=== PATIENT | female | born 1965 | race Hispanic/Latino ===

== ENCOUNTER 2017-02-25 02:26 | Inpatient (IN) | payer MEDICAID, OTHER ==
[2017-02-25] MEDS ORDERED: Sodium Chloride 0.9% 1,000 ML IV SCH ×2 (02:45→04:55)
--- NOTE | 2017-02-25 02:53 | ED PDOC ---
Arrival/HPI - General Time Seen by Provider: 02/25/17 02:28 Historian: Patient, Family - History of Present Illness Narrative History of Present Illness (Text): 02/25/17 02:49 Candi Hitchcock is a 51 year old female who presents to the emergency department for withdrawal symptoms. Patient is a poor historian. Limited history attained from family, who informs that patient's last drink was yesterday. Denies any psychological complaints. Denies chest pain, shortness of breath, abdominal pain , urinary symptoms, or any other complaints at this time. Symptom Onset: Gradual Symptom Course: Worsening Severity Level: Mild Activities at Onset: Light Past Medical History - Provider Review Nursing Documentation Reviewed: Yes - Past History Past History: No Previous - Infectious Disease Hx of Infectious Diseases: None - Tetanus Immunization Tetanus Immunization: Unknown - Musculoskeletal/Rheumatological Hx Falls: No - Psychiatric Hx Depression: No Hx Emotional Abuse: No Hx Physical Abuse: No Hx Substance Use: No - Suicidal Assessment Feels Threatened In Home Enviroment: No Family/Social History - Physician Review Nursing Documentation Reviewed: Yes Family/Social History: No Known Family HX Hx Substance Use: No Hx Substance Use Treatment: No Allergies/Home Meds Allergies/Adverse Reactions: Allergies No Known Allergies Allergy (Verified 09/25/12 21:35) Home Medications: Home Meds Medication Instructions Recorded Confirmed Unobtainable 02/25/17 02/25/17 Review of Systems - Review of Systems Systems not reviewed;Unavailable: Altered Mental Status Respiratory: Normal. absent: SOB, Cough Cardiovascular: Normal. absent: Chest Pain, Palpitations Gastrointestinal: absent: Abdominal Pain Physical Exam Vital Signs Reviewed: Yes Vital Signs Temp Pulse Resp BP Pulse Ox 02/25/17 08:30 110 H 20 133/98 H 99 02/25/17 07:20 102.7 F H 02/25/17 07:12 102.7 F H 114 H 20 97 02/25/17 04:20 118 H 20 152/97 H 99 02/25/17 03:30 97 H 28 H 177/94 H 98 02/25/17 02:39 100.2 F H 92 H 18 164/101 H 96 Temperature: Febrile Blood Pressure: Hypertensive Pulse: Regular Respiratory Rate: Normal Appearance: Positive for: Non-Toxic Pain Distress: None Mental Status: Positive for: other (alert ) Finger Stick Blood Glucose: 164 - Systems Exam Head: Present: Atraumatic, Normocephalic Pupils: Present: PERRL Conjunctiva: Present: Normal Mouth: Present: Moist Mucous Membranes Respiratory/Chest: Present: Clear to Auscultation, Good Air Exchange. No: Respiratory Distress, Accessory Muscle Use Cardiovascular: Present: Regular Rate and Rhythm, Normal S1, S2. No: Murmurs Abdomen: Present: Normal Bowel Sounds. No: Tenderness, Distention, Peritoneal Signs Upper Extremity: Present: Normal Inspection. No: Cyanosis, Edema Lower Extremity: Present: Normal Inspection. No: Edema Neurological: Present: GCS=15, CN II-XII Intact, Speech Normal, Motor Func Grossly Intact, Normal Sensory Function Skin: Present: Warm, Dry, Normal Color. No: Rashes Psychiatric: Present: Alert Medical Decision Making ED Course and Treatment: 02/25/17 02:55 Impression: A 51 year old female who presents to the emergency department for evaluation of alcohol withdrawal symptoms. Plan: -- CT head -- EKG -- Drug screen -- Labs, cardiac enzymes -- Ativan -- IV fluids -- Blood culture -- Urine culture -- Urinalysis -- Reassess and disposition Progress Notes: 02/25/17 04:11 EKG reviewed by me: Sinus Tachycardia @ [address] abnormality. 02/25/17 04:20 Code sepsis called. pt seen by sumanth from [facility] will accept case 02/25/17 20:27 - Critical Care Critical Care Minutes: 45 minutes (for altered mental status) - Lab Interpretations Lab Results: 02/25/17 02:35 02/25/17 02:35 Lab Results 02/25/17 05:14: pCO2 23 L, pO2 80.0, HCO3 22.6, ABG pH 7.60 H, ABG Total CO2 23.3, ABG O2 Saturation 98.2 H, ABG O2 Content 16.1, ABG Base Excess 2.3, ABG Hemoglobin 12.0, ABG Carboxyhemoglobin 2.1 H, POC ABG HHb (Measured) 1.7, ABG Methemoglobin 1.1, ABG O2 Capacity 16.4, Hgb O2 Saturation 95.1, FiO2 21.0 02/25/17 04:00: pO2 31, VBG pH 7.47 H, VBG pCO2 40.0, VBG HCO3 29.1 H, VBG Total CO2 30.3 H, VBG O2 Sat (Calc) 63.5, VBG Base Excess 5.0 H, VBG Potassium 3.5 L, Glucose 119 H, Lactate 4.2 H*, FiO2 21.0, Sodium 135.0, Chloride 99.0, Venous Blood Potassium 3.5 L 02/25/17 02:50: Urine HCG, Qual Negative 02/25/17 02:50: Urine Opiates Screen Positive H, Urine Methadone Screen Negative , Ur Barbiturates Screen Negative, Ur Phencyclidine Scrn Negative, Ur Amphetamines Screen Negative, U Benzodiazepines Scrn Negative, U Oth Cocaine Metabols Negative, U Cannabinoids Screen Negative 02/25/17 02:50: Urine Color Yellow, Urine Appearance Sl cloudy, Urine pH 7.0, Ur Specific [place] 1.025, Urine Protein >=300 H, Urine Glucose (UA) Negative, Urine Ketones Trace H, Urine Blood Large H, Urine Nitrate Negative, Urine Bilirubin Negative, Urine Urobilinogen 0.2, Ur Leukocyte Esterase Negative, Urine RBC 1 - 3, Urine WBC 1 - 3, Ur Epithelial Cells 1 - 3, Amorphous Sediment Few, Urine Bacteria Occ 02/25/17 02:35: Hemoglobin A1c 5.2 02/25/17 02:35: Free T4 0.86, TSH 3rd Generation 0.50 02/25/17 02:35: Triglycerides 94, Cholesterol 227 H, LDL Cholesterol Direct 82, HDL Cholesterol 105 H, Amylase 256 H 02/25/17 02:35: Acetaminophen < 10.0 L 02/25/17 02:35: Alcohol, Quantitative < 10 02/25/17 02:35: Ammonia 9 02/25/17 02:35: Sodium 133, Potassium 2.9 L*, Chloride 94 L, Carbon Dioxide 23, Anion Gap 19, BUN 6 L, Creatinine 0.6, Est GFR ( Amer) > 60, Est GFR (Non -Af Amer) > 60, Random Glucose 148 H, Calcium 9.8, Phosphorus 2.4 L, Magnesium 0.9 L*, Total Bilirubin 1.3, AST 104 H, ALT 26, Alkaline Phosphatase 82, Lactate Dehydrogenase 632, Total Creatine Kinase 148, Troponin I 0.02, Total Protein 9.2 H, Albumin 4.3, Globulin 4.9, Albumin/Globulin Ratio 0.9 L, Lipase 464 H 02/25/17 02:35: PT 12.6 H, INR 1.17 H, APTT 30.6 02/25/17 02:35: WBC 20.7 H, RBC 4.32, Hgb 14.2, Hct 41.0, MCV 94.9, MCH 32.9, MCHC 34.6, RDW 14.3, Plt Count 136, MPV 10.3, Neutrophils % (Manual) 89 H, Band Neutrophils % 7 H, Lymphocytes % (Manual) 2 L, Monocytes % (Manual) 2, Platelet Evaluation Normal I have reviewed the lab results: Yes - RAD Interpretation Radiology Orders: 02/25/17 02:39 HEAD W/O CONTRAST [CT] Stat 02/25/17 02:40 CHEST PORTABLE [RAD] Stat 02/25/17 04:39 ABDOMEN & PELVIS [ABD & PELVIS W/O PO OR IV CONT] [CT] Stat Animal Nutritionist: Radiologist - EKG Interpretation Interpreted by ED Physician: Yes Type: 12 lead EKG - Medication Orders Current Medication Orders: Acetaminophen (Tylenol 325mg Tab) 650 mg PO Q6H PRN PRN Reason: Fever >100.4 F Piperacillin Sod/Tazobactam Sod (Zosyn 3.375 In Ns 100ml) 100 mls @ 200 mls/hr IVPB Q6 BOBBY PRN Reason: Protocol Stop: 03/04/17 12:01 Last Admin: 02/25/17 13:30 Dose: 200 mls/hr Dexmedetomidine HCl (Precedex 4 Mcg/Ml (100 Ml)) 400 mcg in 100 mls @ 2.041 mls /hr IV .Q24H PRN; Protocol; 0.2 MCG/KG/HR PRN Reason: Sedation Last Titration: 02/25/17 14:02 Dose: 0.6 mcg/kg/hr, 6.123 mls/hr Folic Acid 1 mg/ Thiamine HCl 100 mg/ Multivitamins/Vitamin C 10 ml/ Dextrose 1 ,011.2 mls @ 100 mls/hr IV .Q10H7M [facility] Last Admin: 02/25/17 16:06 Dose: 100 mls/hr Vancomycin HCl (Vancomycin 500mg In Ns) 500 mg in 100 mls @ 200 mls/hr IVPB Q12 [facility]OBBY PRN Reason: Protocol Lorazepam (Ativan) 2 mg PO Q3H PRN; Protocol PRN Reason: Symptoms of alcohol withdrawl Pantoprazole Sodium (Protonix Inj) 40 mg IVP DAILY [facility] Last Admin: 02/25/17 10:10 Dose: 40 mg Vitamin B Complex/Vit C/Folic Acid (Nephro-[place]) 1 tab PO DAILY [facility] Last Admin: 02/25/17 10:08 Dose: Not Given Non-Admin Reason: Patient Lethargic Discontinued Medications Acetaminophen (Tylenol 650 Mg Supp) 650 mg RC STAT STA Stop: 02/25/17 07:14 Last Admin: 02/25/17 07:20 Dose: 650 mg Albuterol/Ipratropium (Duoneb 3 Mg/0.5 Mg (3 Ml) Ud) 3 ml IH Q4H PRN PRN Reason: Shortness of Breath Stop: 02/25/17 13:01 Diphenhydramine HCl (Benadryl) 25 mg IVP STAT STA Stop: 02/25/17 06:39 Last Admin: 02/25/17 06:53 Dose: 25 mg Haloperidol Lactate (Haldol) 2 mg IVP STAT STA PRN Reason: Protocol Stop: 02/25/17 04:54 Last Admin: 02/25/17 05:11 Dose: 2 mg Haloperidol Lactate (Haldol) 4 mg IVP STAT STA PRN Reason: Protocol Stop: 02/25/17 05:52 Last Admin: 02/25/17 05:56 Dose: 4 mg Sodium Chloride (Sodium Chloride 0.9%) 1,000 mls @ 80 mls/hr IV .[id number] [facility] Last Admin: 02/25/17 02:55 Dose: 80 mls/hr Magnesium Sulfate/Dextrose (Magnesium Sulfate 1 Gm/100 Ml D5w) 1 gm in 100 mls @ 100 mls/hr IVPB ONCE ONE Stop: 02/25/17 04:24 Last Admin: 02/25/17 04:08 Dose: 100 mls/hr Potassium Chloride (Potassium Chloride 20 Meq/100 Ml) 20 meq in 100 mls @ 50 mls/hr IVPB Q2H [facility] Stop: 02/25/17 07:29 Last Admin: 02/25/17 06:07 Dose: 50 mls/hr Piperacillin Sod/Tazobactam Sod (Zosyn 3.375 In Ns 100ml) 100 mls @ 200 mls/hr IVPB STAT STA PRN Reason: Protocol Stop: 02/25/17 04:41 Last Admin: 02/25/17 04:34 Dose: 200 mls/hr Sodium Chloride 1,200 ml/ IV (SUPPLIES) 1,200 mls @ 2,449.38 mls/hr IV ONCE ONE PRN Reason: 60 ML/KG/HR Stop: 02/25/17 04:23 Last Admin: 02/25/17 04:41 Dose: 2,449.38 mls/hr Levofloxacin/Dextrose (Levaquin 750mg) 750 mg in 150 mls @ 100 mls/hr IVPB STAT STA Stop: 02/25/17 06:03 Last Admin: 02/25/17 05:12 Dose: 100 mls/hr Potassium Phosphate 15 mmole/ (Sodium Chloride) 255 mls @ 42.5 mls/hr IVPB ONCE ONE Stop: 02/25/17 10:48 Last Admin: 02/25/17 05:56 Dose: 42.5 mls/hr Vancomycin HCl (Vancomycin 1gm) 1 gm in 250 mls @ 167 mls/hr IVPB STAT STA PRN Reason: Protocol Stop: 02/25/17 06:18 Last Admin: 02/25/17 10:31 Dose: 167 mls/hr Sodium Chloride (Sodium Chloride 0.9%) 1,000 mls @ 100 mls/hr IV .Q10H [facility] Last Admin: 02/25/17 05:57 Dose: 100 mls/hr Magnesium Sulfate/Dextrose (Magnesium Sulfate 1 Gm/100 Ml D5w) 1 gm in 100 mls @ 100 mls/hr IVPB ONCE ONE Stop: 02/25/17 13:50 Last Admin: 02/25/17 14:17 Dose: 100 mls/hr Lorazepam (Ativan) 0.5 mg IVP ONCE ONE PRN Reason: Protocol Stop: 02/25/17 02:44 Last Admin: 02/25/17 02:55 Dose: 0.5 mg Lorazepam (Ativan) 2 mg IVP ONCE ONE PRN Reason: Protocol Stop: 02/25/17 06:39 Last Admin: 02/25/17 06:54 Dose: 2 mg Thiamine HCl (Vitamin B1 Inj) 100 mg IM STAT STA Stop: 02/25/17 03:44 Last Admin: 02/25/17 04:33 Dose: 100 mg - Scribe Statement The provider has reviewed the documentation as recorded by the Chelsey Anderson Provider Attestation: All medical record entries made by the Chelsey were at my direction and personally dictated by me. I have reviewed the chart and agree that the record accurately reflects my personal performance of the history, physical exam, medical decision making, and the department course for this patient. I have also personally directed, reviewed, and agree with the discharge instructions and disposition. Disposition/Present on Arrival - Present on Arrival Any Indicators Present on Arrival: No History of DVT/PE: No History of Uncontrolled Diabetes: No Urinary Catheter: No History Surgical Site Infection Following: None - Disposition Have Diagnosis and Disposition been Completed?: Yes Diagnosis: Alcohol withdrawal syndrome, Sepsis Disposition: HOSPITALIZED Disposition Time: 06:00 Condition: SERIOUS
[2017-02-25 02:54] LABS: MEAN CELL VOLUME 94.9 fL (80.0-105.0); MEAN CORPUSCULAR HEMOGLOBIN 32.9 pg (25.0-35.0); MEAN CORPUSCULAR HGB CONC 34.6 g/dl (31.0-37.0); MEAN PLATELET VOLUME 10.3 fl (7.0-11.0); PLATELET COUNT 136 10^3/uL (120.0-450.0); RED CELL DISTRIBUTION WIDTH 14.3 % (11.5-14.5); WHITE BLOOD COUNT 20.7 10^3/ul (4.5-11.0)
[2017-02-25 02:55] LABS: ADD MANUAL DIFF? YES
[2017-02-25 03:06] LABS: INR 1.17 (0.93-1.08); PARTIAL THROMBOPLASTIN TIME 30.6 Seconds (23.7-30.8)
[2017-02-25 03:09] LABS: ALB/GLOB RATIO 0.9 (1.1-1.8); ALKALINE PHOSPHATASE 82 U/L (38-133); ALT/SGPT 26 U/L (7-56); AST/SGOT 104 U/L (15-39); BILIRUBIN,TOTAL 1.3 mg/dL (0.2-1.3); BLOOD UREA NITROGEN 6 mg/dL (7-21); CALCIUM 9.8 mg/dL (8.4-10.5); CARBON DIOXIDE 23 mmol/L (21-33); CHLORIDE 94 mmol/L (98-107); GFR AFRICAN-AMERICAN > 60; GLUCOSE,RANDOM 148 mg/dL (70-110); LIPASE 464 U/L (23-300); PHOSPHOROUS 2.4 mg/dL (2.5-4.5); SODIUM 133 mmol/L (132-148); TOTAL PROTEIN 9.2 g/dL (5.8-8.3)
[2017-02-25 03:13] LABS: BAND 7 % (0-2); NEUTROPHIL 89 % (50.0-70.0); PLATELET ESTIMATE NORMAL (NORMAL)
[2017-02-25 03:16] LABS: URINE BILIRUBIN NEGATIVE (NEGATIVE); URINE BLOOD LARGE (NEGATIVE); URINE GLUCOSE (UA) NEGATIVE (NEGATIVE); URINE KETONE TRACE mg/dL (NEGATIVE); URINE LEUKOCYTE ESTERASE NEGATIVE Leu/uL (NEGATIVE); URINE PROTEIN >=300 mg/dL (<30 mg/dL); URINE UROBILINOGEN 0.2 E.U./dL (<1 E.U./dL)
[2017-02-25 03:21] LABS: TROPONIN I 0.02 ng/mL
[2017-02-25 03:24] LABS: MAGNESIUM 0.9 mg/dL (1.7-2.2); POTASSIUM 2.9 mmol/L (3.6-5.0)
[2017-02-25] MEDS ORDERED: Magnesium Sulfate 1 gm in D5W 1 GM/100 ML BAG IVPB ONE ×2 (03:25→12:51)
[2017-02-25 03:30] LABS: URINE APPEARANCE SL CLOUDY (CLEAR); URINE COLOR YELLOW (YELLOW)
[2017-02-25 03:31] LABS: URINE AMORPHOUS SEDIMENT FEW; URINE BACTERIA OCC (NEG)
[2017-02-25] MEDS ORDERED: Thiamine 100 mg/ml Inj IM STA (03:43)
[2017-02-25] MEDS ORDERED: Piperacillin/Tazobact 3.375 gm 100 ML IVPB STA (04:12)
[2017-02-25] MEDS ORDERED: Dextrose 5%/Lactated Ringer's 1,000 ML IV SCH (04:13)
--- NOTE | 2017-02-25 04:16 | CP.PCM.HP ---
<Mauro Gomez - Last Filed: 02/25/17 05:47> History of Present Illness - History of Present Illness History of Present Illness: This is a 51yo F who was brought in for AMS; patient is unable to participate in history taking portion of exam and is responding inappropriately to questions. Family member at bedside is not able to offer much insight into their medical problems/medication history. States that the patient is normally a very big drinker, and her last drink was yesterday AM and has began to act funny since then. She has been vomiting at home multiple times a day now, and has been stating that her abdomen is burning. Boyfriend also states that she has a history of seizures, but does not know the medicines that she is on. PMhx: Seizures?? EtOH abuse/Polysubstance abuse; has been in rehab "many times" FamHx: Unobtainable Social: Daily drinker, unknown how much, denies other drug use. Allergies: Unobtainable Medications: Unobtainable Surgeries: unobtainable; no scars seen on body Head CT and Abdomen Pelvis CT ordered to try and see source of infection. Present on Admission - Present on Admission Any Indicators Present on Admission: No History of DVT/PE: No History of Uncontrolled Diabetes: No Urinary Catheter: No Decubitus Ulcer Present: No Review of Systems - Review of Systems Review of Systems: unable to obtain Past Patient History - Infectious Disease Hx of Infectious Diseases: None - Tetanus Immunizations Tetanus Immunization: Unknown - Past Social History Smoking Status: y - MUSCULOSKELETAL/RHEUMATOLOGICAL Hx Falls: No - PSYCHIATRIC Hx Depression: No Hx Emotional Abuse: No Hx Physical Abuse: No Hx Substance Use: No Meds Allergies/Adverse Reactions: Allergies Allergy/AdvReac Type Severity Reaction Status Date / Time No Known Allergies Allergy Verified 09/25/12 21:35 Physical Exam - Constitutional Appears: In Acute Distress, Unkempt, Older Than Stated Age, Confused - Head Exam Head Exam: ATRAUMATIC - Eye Exam Eye Exam: EOMI, PERRL - ENT Exam ENT Exam: Mucous Membranes Dry - Neck Exam Neck exam: Positive for: Full Rom. Negative for: Lymphadenopathy, Meningismus - Respiratory Exam Respiratory Exam: Clear to Auscultation Bilateral, Wheezes, NORMAL BREATHING PATTERN. absent: Rales, Rhonchi - Cardiovascular Exam Cardiovascular Exam: REGULAR RHYTHM, +S1, +S2 - GI/Abdominal Exam GI & Abdominal Exam: Guarding, Normal Bowel Sounds, Organomegaly, Soft, Tenderness. absent: Pulsatile Mass Results - Vital Signs Recent Vital Signs: Last Vital Signs Temp 100.2 F H 02/25/17 02:39 Pulse 92 H 02/25/17 02:39 Resp 18 02/25/17 02:39 BP 164/101 H 02/25/17 02:39 Pulse Ox 96 02/25/17 02:39 - Labs Result Diagrams: 02/25/17 02:35 02/25/17 02:35 Labs: Laboratory Results - last 24 hr 02/25/17 02/25/17 02/25/17 02:35 02:35 02:35 WBC 20.7 H RBC 4.32 Hgb 14.2 Hct 41.0 MCV 94.9 MCH 32.9 MCHC 34.6 RDW 14.3 Plt Count 136 MPV 10.3 Neutrophils % (Manual) 89 H Band Neutrophils % 7 H Lymphocytes % (Manual) 2 L Monocytes % (Manual) 2 Platelet Evaluation Normal PT 12.6 H INR 1.17 H APTT 30.6 Sodium 133 Potassium 2.9 L* Chloride 94 L Carbon Dioxide 23 Anion Gap 19 BUN 6 L Creatinine 0.6 Est GFR ( Amer) > 60 Est GFR (Non-Af Amer) > 60 Random Glucose 148 H Calcium 9.8 Phosphorus 2.4 L Magnesium 0.9 L* Total Bilirubin 1.3 AST 104 H ALT 26 Alkaline Phosphatase 82 Ammonia Lactate Dehydrogenase 632 Total Creatine Kinase 148 Troponin I 0.02 Total Protein 9.2 H Albumin 4.3 Globulin 4.9 Albumin/Globulin Ratio 0.9 L Lipase 464 H Urine Color Urine Appearance Urine pH Ur Specific [place] Urine Protein Urine Glucose (UA) Urine Ketones Urine Blood Urine Nitrate Urine Bilirubin Urine Urobilinogen Ur Leukocyte Esterase Urine RBC Urine WBC Ur Epithelial Cells Amorphous Sediment Urine Bacteria Urine Opiates Screen Urine Methadone Screen Acetaminophen Ur Barbiturates Screen Ur Phencyclidine Scrn Ur Amphetamines Screen U Benzodiazepines Scrn U Oth Cocaine Metabols U Cannabinoids Screen Alcohol, Quantitative 02/25/17 02/25/17 02/25/17 02:35 02:35 02:35 WBC RBC Hgb Hct MCV MCH MCHC RDW Plt Count MPV Neutrophils % (Manual) Band Neutrophils % Lymphocytes % (Manual) Monocytes % (Manual) Platelet Evaluation PT INR APTT Sodium Potassium Chloride Carbon Dioxide Anion Gap BUN Creatinine Est GFR ( Amer) Est GFR (Non-Af Amer) Random Glucose Calcium Phosphorus Magnesium Total Bilirubin AST ALT Alkaline Phosphatase Ammonia 9 Lactate Dehydrogenase Total Creatine Kinase Troponin I Total Protein Albumin Globulin Albumin/Globulin Ratio Lipase Urine Color Urine Appearance Urine pH Ur Specific [place] Urine Protein Urine Glucose (UA) Urine Ketones Urine Blood Urine Nitrate Urine Bilirubin Urine Urobilinogen Ur Leukocyte Esterase Urine RBC Urine WBC Ur Epithelial Cells Amorphous Sediment Urine Bacteria Urine Opiates Screen Urine Methadone Screen Acetaminophen < 10.0 L Ur Barbiturates Screen Ur Phencyclidine Scrn Ur Amphetamines Screen U Benzodiazepines Scrn U Oth Cocaine Metabols U Cannabinoids Screen Alcohol, Quantitative < 10 02/25/17 02/25/17 02:50 02:50 WBC RBC Hgb Hct MCV MCH MCHC RDW Plt Count MPV Neutrophils % (Manual) Band Neutrophils % Lymphocytes % (Manual) Monocytes % (Manual) Platelet Evaluation PT INR APTT Sodium Potassium Chloride Carbon Dioxide Anion Gap BUN Creatinine Est GFR ( Amer) Est GFR (Non-Af Amer) Random Glucose Calcium Phosphorus Magnesium Total Bilirubin AST ALT Alkaline Phosphatase Ammonia Lactate Dehydrogenase Total Creatine Kinase Troponin I Total Protein Albumin Globulin Albumin/Globulin Ratio Lipase Urine Color Yellow Urine Appearance Sl cloudy Urine pH 7.0 Ur Specific [place] 1.025 Urine Protein >=300 H Urine Glucose (UA) Negative Urine Ketones Trace H Urine Blood Large H Urine Nitrate Negative Urine Bilirubin Negative Urine Urobilinogen 0.2 Ur Leukocyte Esterase Negative Urine RBC 1 - 3 Urine WBC 1 - 3 Ur Epithelial Cells 1 - 3 Amorphous Sediment Few Urine Bacteria Occ Urine Opiates Screen Positive H Urine Methadone Screen Negative Acetaminophen Ur Barbiturates Screen Negative Ur Phencyclidine Scrn Negative Ur Amphetamines Screen Negative U Benzodiazepines Scrn Negative U Oth Cocaine Metabols Negative U Cannabinoids Screen Negative Alcohol, Quantitative Assessment & Plan - Assessment and Plan (Free Text) Assessment: 51yo F admitted for AMS and Sepsis 2/2 to ??? AMS 2/2 to Sepsis from?? -Lactate 4.2; trend -WBC 20.2, Temp 100.7, tachycardic -pending ABG; f/u -f/u head CT and abdomen/pelvis CT -Chest X-Ray shows emphysematous changes; no apparent PNA -Urine clean -Empiric Vanc and Zosyn Hypokalemia -given 80meq in ED -trend Hypomagnesemia -given one bag of mag in ED -trend Hypophosphatemia -given 1amp phosph -trend EtOH Withdrawal? -CIWA protocol and Ativan as needed -last drink 24 hours ago Prophylaxis SCD Pepcid f/u basic labs; patient has no records at this hospital but states she has been here for detox in the past at [facility] Corroborate collateral information as patient becomes more oriented Case discussed and seen with Dr. Cecilia Gomez PGY1 Night Float Decision To Admit - Pt Status Changed To: Hospital Disposition Of: Inpatient Admission - Admit Certification Admit to Inpatient:: After my assessment, the patient will require hospitalization for at least two midnights. This is because of the severity of symptoms shown, intensity of services needed, and/or the medical risk in this patient being treated as an outpatient. - . Bed Request Type: Telemetry Admitting Physician: Brian Brooks <Brian Brooks - Last Filed: 02/25/17 06:44> Results - Vital Signs Recent Vital Signs: Last Vital Signs Temp 100.2 F H 02/25/17 02:39 Pulse 118 H 02/25/17 04:20 Resp 20 02/25/17 04:20 BP 152/97 H 02/25/17 04:20 Pulse Ox 99 02/25/17 04:20 - Labs Result Diagrams: 02/25/17 02:35 02/25/17 02:35 Labs: Laboratory Results - last 24 hr 02/25/17 02/25/17 02/25/17 02:35 02:35 02:35 WBC 20.7 H RBC 4.32 Hgb 14.2 Hct 41.0 MCV 94.9 MCH 32.9 MCHC 34.6 RDW 14.3 Plt Count 136 MPV 10.3 Neutrophils % (Manual) 89 H Band Neutrophils % 7 H Lymphocytes % (Manual) 2 L Monocytes % (Manual) 2 Platelet Evaluation Normal PT 12.6 H INR 1.17 H APTT 30.6 pCO2 pO2 HCO3 ABG pH ABG Total CO2 ABG O2 Saturation ABG O2 Content ABG Base Excess ABG Hemoglobin ABG Carboxyhemoglobin POC ABG HHb (Measured) ABG Methemoglobin ABG O2 Capacity VBG pH VBG pCO2 VBG HCO3 VBG Total CO2 VBG O2 Sat (Calc) VBG Base Excess VBG Potassium Hgb O2 Saturation Glucose Lactate FiO2 Sodium 133 Potassium 2.9 L* Chloride 94 L Carbon Dioxide 23 Anion Gap 19 BUN 6 L Creatinine 0.6 Est GFR ( Amer) > 60 Est GFR (Non-Af Amer) > 60 Random Glucose 148 H Calcium 9.8 Phosphorus 2.4 L Magnesium 0.9 L* Total Bilirubin 1.3 AST 104 H ALT 26 Alkaline Phosphatase 82 Ammonia Lactate Dehydrogenase 632 Total Creatine Kinase 148 Troponin I 0.02 Total Protein 9.2 H Albumin 4.3 Globulin 4.9 Albumin/Globulin Ratio 0.9 L Triglycerides Cholesterol LDL Cholesterol Direct HDL Cholesterol Amylase Lipase 464 H Free T4 TSH 3rd Generation Venous Blood Potassium Urine Color Urine Appearance Urine pH Ur Specific [place] Urine Protein Urine Glucose (UA) Urine Ketones Urine Blood Urine Nitrate Urine Bilirubin Urine Urobilinogen Ur Leukocyte Esterase Urine RBC Urine WBC Ur Epithelial Cells Amorphous Sediment Urine Bacteria Urine HCG, Qual Urine Opiates Screen Urine Methadone Screen Acetaminophen Ur Barbiturates Screen Ur Phencyclidine Scrn Ur Amphetamines Screen U Benzodiazepines Scrn U Oth Cocaine Metabols U Cannabinoids Screen Alcohol, Quantitative 02/25/17 02/25/17 02/25/17 02:35 02:35 02:35 WBC RBC Hgb Hct MCV MCH MCHC RDW Plt Count MPV Neutrophils % (Manual) Band Neutrophils % Lymphocytes % (Manual) Monocytes % (Manual) Platelet Evaluation PT INR APTT pCO2 pO2 HCO3 ABG pH ABG Total CO2 ABG O2 Saturation ABG O2 Content ABG Base Excess ABG Hemoglobin ABG Carboxyhemoglobin POC ABG HHb (Measured) ABG Methemoglobin ABG O2 Capacity VBG pH VBG pCO2 VBG HCO3 VBG Total CO2 VBG O2 Sat (Calc) VBG Base Excess VBG Potassium Hgb O2 Saturation Glucose Lactate FiO2 Sodium Potassium Chloride Carbon Dioxide Anion Gap BUN Creatinine Est GFR ( Amer) Est GFR (Non-Af Amer) Random Glucose Calcium Phosphorus Magnesium Total Bilirubin AST ALT Alkaline Phosphatase Ammonia 9 Lactate Dehydrogenase Total Creatine Kinase Troponin I Total Protein Albumin Globulin Albumin/Globulin Ratio Triglycerides Cholesterol LDL Cholesterol Direct HDL Cholesterol Amylase Lipase Free T4 TSH 3rd Generation Venous Blood Potassium Urine Color Urine Appearance Urine pH Ur Specific [place] Urine Protein Urine Glucose (UA) Urine Ketones Urine Blood Urine Nitrate Urine Bilirubin Urine Urobilinogen Ur Leukocyte Esterase Urine RBC Urine WBC Ur Epithelial Cells Amorphous Sediment Urine Bacteria Urine HCG, Qual Urine Opiates Screen Urine Methadone Screen Acetaminophen < 10.0 L Ur Barbiturates Screen Ur Phencyclidine Scrn Ur Amphetamines Screen U Benzodiazepines Scrn U Oth Cocaine Metabols U Cannabinoids Screen Alcohol, Quantitative < 10 02/25/17 02/25/17 02/25/17 02:35 02:35 02:50 WBC RBC Hgb Hct MCV MCH MCHC RDW Plt Count MPV Neutrophils % (Manual) Band Neutrophils % Lymphocytes % (Manual) Monocytes % (Manual) Platelet Evaluation PT INR APTT pCO2 pO2 HCO3 ABG pH ABG Total CO2 ABG O2 Saturation ABG O2 Content ABG Base Excess ABG Hemoglobin ABG Carboxyhemoglobin POC ABG HHb (Measured) ABG Methemoglobin ABG O2 Capacity VBG pH VBG pCO2 VBG HCO3 VBG Total CO2 VBG O2 Sat (Calc) VBG Base Excess VBG Potassium Hgb O2 Saturation Glucose Lactate FiO2 Sodium Potassium Chloride Carbon Dioxide Anion Gap BUN Creatinine Est GFR ( Amer) Est GFR (Non-Af Amer) Random Glucose Calcium Phosphorus Magnesium Total Bilirubin AST ALT Alkaline Phosphatase Ammonia Lactate Dehydrogenase Total Creatine Kinase Troponin I Total Protein Albumin Globulin Albumin/Globulin Ratio Triglycerides 94 Cholesterol 227 H LDL Cholesterol Direct 82 HDL Cholesterol 105 H Amylase 256 H Lipase Free T4 0.86 TSH 3rd Generation 0.50 Venous Blood Potassium Urine Color Yellow Urine Appearance Sl cloudy Urine pH 7.0 Ur Specific [place] 1.025 Urine Protein >=300 H Urine Glucose (UA) Negative Urine Ketones Trace H Urine Blood Large H Urine Nitrate Negative Urine Bilirubin Negative Urine Urobilinogen 0.2 Ur Leukocyte Esterase Negative Urine RBC 1 - 3 Urine WBC 1 - 3 Ur Epithelial Cells 1 - 3 Amorphous Sediment Few Urine Bacteria Occ Urine HCG, Qual Urine Opiates Screen Urine Methadone Screen Acetaminophen Ur Barbiturates Screen Ur Phencyclidine Scrn Ur Amphetamines Screen U Benzodiazepines Scrn U Oth Cocaine Metabols U Cannabinoids Screen Alcohol, Quantitative 02/25/17 02/25/17 02/25/17 02:50 02:50 04:00 WBC RBC Hgb Hct MCV MCH MCHC RDW Plt Count MPV Neutrophils % (Manual) Band Neutrophils % Lymphocytes % (Manual) Monocytes % (Manual) Platelet Evaluation PT INR APTT pCO2 pO2 31 HCO3 ABG pH ABG Total CO2 ABG O2 Saturation ABG O2 Content ABG Base Excess ABG Hemoglobin ABG Carboxyhemoglobin POC ABG HHb (Measured) ABG Methemoglobin ABG O2 Capacity VBG pH 7.47 H VBG pCO2 40.0 VBG HCO3 29.1 H VBG Total CO2 30.3 H VBG O2 Sat (Calc) 63.5 VBG Base Excess 5.0 H VBG Potassium 3.5 L Hgb O2 Saturation Glucose 119 H Lactate 4.2 H* FiO2 21.0 Sodium 135.0 Potassium Chloride 99.0 Carbon Dioxide Anion Gap BUN Creatinine Est GFR ( Amer) Est GFR (Non-Af Amer) Random Glucose Calcium Phosphorus Magnesium Total Bilirubin AST ALT Alkaline Phosphatase Ammonia Lactate Dehydrogenase Total Creatine Kinase Troponin I Total Protein Albumin Globulin Albumin/Globulin Ratio Triglycerides Cholesterol LDL Cholesterol Direct HDL Cholesterol Amylase Lipase Free T4 TSH 3rd Generation Venous Blood Potassium 3.5 L Urine Color Urine Appearance Urine pH Ur Specific [place] Urine Protein Urine Glucose (UA) Urine Ketones Urine Blood Urine Nitrate Urine Bilirubin Urine Urobilinogen Ur Leukocyte Esterase Urine RBC Urine WBC Ur Epithelial Cells Amorphous Sediment Urine Bacteria Urine HCG, Qual Negative Urine Opiates Screen Positive H Urine Methadone Screen Negative Acetaminophen Ur Barbiturates Screen Negative Ur Phencyclidine Scrn Negative Ur Amphetamines Screen Negative U Benzodiazepines Scrn Negative U Oth Cocaine Metabols Negative U Cannabinoids Screen Negative Alcohol, Quantitative 02/25/17 05:14 WBC RBC Hgb Hct MCV MCH MCHC RDW Plt Count MPV Neutrophils % (Manual) Band Neutrophils % Lymphocytes % (Manual) Monocytes % (Manual) Platelet Evaluation PT INR APTT pCO2 23 L pO2 80.0 HCO3 22.6 ABG pH 7.60 H ABG Total CO2 23.3 ABG O2 Saturation 98.2 H ABG O2 Content 16.1 ABG Base Excess 2.3 ABG Hemoglobin 12.0 ABG Carboxyhemoglobin 2.1 H POC ABG HHb (Measured) 1.7 ABG Methemoglobin 1.1 ABG O2 Capacity 16.4 VBG pH VBG pCO2 VBG HCO3 VBG Total CO2 VBG O2 Sat (Calc) VBG Base Excess VBG Potassium Hgb O2 Saturation 95.1 Glucose Lactate FiO2 21.0 Sodium Potassium Chloride Carbon Dioxide Anion Gap BUN Creatinine Est GFR ( Amer) Est GFR (Non-Af Amer) Random Glucose Calcium Phosphorus Magnesium Total Bilirubin AST ALT Alkaline Phosphatase Ammonia Lactate Dehydrogenase Total Creatine Kinase Troponin I Total Protein Albumin Globulin Albumin/Globulin Ratio Triglycerides Cholesterol LDL Cholesterol Direct HDL Cholesterol Amylase Lipase Free T4 TSH 3rd Generation Venous Blood Potassium Urine Color Urine Appearance Urine pH Ur Specific [place] Urine Protein Urine Glucose (UA) Urine Ketones Urine Blood Urine Nitrate Urine Bilirubin Urine Urobilinogen Ur Leukocyte Esterase Urine RBC Urine WBC Ur Epithelial Cells Amorphous Sediment Urine Bacteria Urine HCG, Qual Urine Opiates Screen Urine Methadone Screen Acetaminophen Ur Barbiturates Screen Ur Phencyclidine Scrn Ur Amphetamines Screen U Benzodiazepines Scrn U Oth Cocaine Metabols U Cannabinoids Screen Alcohol, Quantitative Attending/Attestation - Attestation I have personally seen and examined this patient.: Yes I have fully participated in the care of the patient.: Yes I have reviewed all pertinent clinical information: Yes Notes (Text): 02/25/17 06:39 I agree with the above mentioned note by Dr. Valencia with the following additions /exceptions: 51 y/o Female with a PMhx Asthma, Seizure disorder, Polysubstance abuse ( alcohol and heroin) presents to the ED accompanied by her boyfriend for altered mentation. Boyfriend reports the patient has been vomiting multiple times a day over the past few days and reporting complaints of abdominal pain and burning. He also states the patient may be going through alcohol withdrawal as she usually drinks 1/2 pint of hard liquor daily and has not drank in 2 days. Patient herself is only AAOx1 and unable to offer much history. She has sepsis with an unknown source at this time as well as contraction alkalosis likely secondary to her vomiting. She will have a CT of her head and abdomen and be admitted to the ICU for further care and monitoring. Case discussed with Dr. Arellano in the ED all labs and images available to me thus far have been reviewed electrolytes repleted Total time of care: 45 minutes
[2017-02-25 04:18] LABS: VENOUS BLOOD PH 7.47 (7.32-7.43)
[2017-02-25] MEDS ORDERED: levoFLOXacin 750 mg in D5W 750 MG/150 ML BAG IVPB STA (04:34)
[2017-02-25] MEDS ORDERED: Vancomycin 1gm in NS 250ml 1 GM/250 ML BAG IVPB STA (04:49)
[2017-02-25] MEDS ORDERED: Potassium Phosphate 15 MMOLE in Sodium Chloride 0.9% 250 ML IVPB ONE (04:49)
[2017-02-25] MEDS ORDERED: Albuterol-Ipratrop 3 mg / 0.5 (3 ml) UD IH PRN (04:54)
[2017-02-25 05:01] LABS: CHOLESTEROL 227 mg/dL (130-200)
[2017-02-25 05:17] LABS: ARTERIAL BLOOD GAS HCO3 22.6 mmol/L (21-28); ARTERIAL BLOOD GAS O2 CAPACITY 16.4 mL/dl (16-24); ARTERIAL BLOOD GAS O2 CONTENT 16.1 ML/dl (15-23); ARTERIAL BLOOD HGB O2 SAT 95.1 % (95.0-98.0); CARBOXYHEMOGLOBIN 2.1 % (0.5-1.5); HHB 1.7 % (0-5); METHEMOGLOBIN 1.1 % (0.0-3.0)
[2017-02-25 05:20] LABS: FREE T4 0.86 ng/dL (0.78-2.19)
[2017-02-25 05:34] LABS: THYROID STIMULATING HORMONE 0.5 mIU/mL (0.46-4.68)
[2017-02-25 05:56] LABS: AMYLASE 256 U/L (35-125)
[2017-02-25] MEDS ORDERED: DiphenhydrAMINE 50 mg/ml Inj IVP STA (06:38)
[2017-02-25 06:42] LABS: VENOUS BLOOD GAS BASE EXCESS 0.1 mmol/L (0.0-2.0); VENOUS BLOOD PH 7.36 (7.32-7.43)
--- NOTE | 2017-02-25 08:36 | RAD ---
HISTORY: ams COMPARISON: No prior. FINDINGS: LUNGS: Lung volumes are increased ill-defined patchy reticular nodular opacities in the right mid to upper lung zone are questioned. No more denser consolidation appreciated. More typical consolidative infiltrate suggested. PLEURA: No significant pleural effusion identified, no pneumothorax apparent. CARDIOVASCULAR: Normal. OSSEOUS STRUCTURES: No significant abnormalities. VISUALIZED UPPER ABDOMEN: Normal. OTHER FINDINGS: None. IMPRESSION: Bilateral hyperaeration- COPD/emphysema versus deep inspiration are considerations. No comparison available Indeterminate small patchy reticular nodular opacities in the right mid to upper lung zone conceivably prominent anterior coaster cartilaginous junctional calcifications could simulate this (those bordering the anterior right 3rd rib. Without prior studies available to assess for stability, consider elective CT chest imaging without contrast enhancement to further evaluate
[2017-02-25 09:08] LABS: BLOOD UREA NITROGEN 7 mg/dL (7-21); CALCIUM 9.4 mg/dL (8.4-10.5); CARBON DIOXIDE 20 mmol/L (21-33); CHLORIDE 99 mmol/L (95-110); GFR AFRICAN-AMERICAN > 60; GLUCOSE,RANDOM 110 mg/dL (70-110); MAGNESIUM 1.2 mg/dL (1.7-2.2); PHOSPHOROUS 2.1 mg/dL (2.5-4.5); POTASSIUM 3.8 mmol/L (3.6-5.0); SODIUM 135 mmol/L (132-148)
[2017-02-25] MEDS ORDERED: Dexmedetomidine HCl 4mcg/ml 400 MCG/100 ML BOTTLE IV PRN (09:34)
[2017-02-25 09:56] VITALS: BMI 19.1
[2017-02-25] MEDS ORDERED: Famotidine 20mg/50ml 20 MG/50 ML BAG IV SCH (10:00)
[2017-02-25] MEDS: Multivitamin Vitamin B Complex (Nephro-Vite) Tab PO SCH (10:08)
--- NOTE | 2017-02-25 10:30 | CP.PCM.CON ---
History of Present Illness - History of Present Illness History of Present Illness: 51 year old female with PMH of ethanol abuse, polysubstance abuse was brought in because of agitation and inappropriate answers to questions. She had been complaining of abdominal pain prior to her agitation and was noted to have as few episodes of vomiting. There was no note of loss of consciousness, no diarrhea. Full review of systems is unobtainable because of the patient's altered mental status. The only ROS I could elicit from the patient is that she is having abdominal pain but does not elaborate further. In the ED, she was noted to have fever of 102.7 F as well as leukocytosis. Infectious diseases consult is requested to further evaluate and manage. Review of Systems - Review of Systems Systems not reviewed;Unavailable: Altered Mental Status Past Patient History - Infectious Disease Hx of Infectious Diseases: None - Tetanus Immunizations Tetanus Immunization: Unknown - Past Social History Smoking Status: y - MUSCULOSKELETAL/RHEUMATOLOGICAL Hx Falls: No - PSYCHIATRIC Hx Depression: No Hx Emotional Abuse: No Hx Physical Abuse: No Hx Substance Use: No Meds Allergies/Adverse Reactions: Allergies Allergy/AdvReac Type Severity Reaction Status Date / Time No Known Allergies Allergy Verified 09/25/12 21:35 - Medications Medications: Current Medications Acetaminophen (Tylenol 325mg Tab) 650 mg PO Q6H PRN PRN Reason: Fever >100.4 F Albuterol/Ipratropium (Duoneb 3 Mg/0.5 Mg (3 Ml) Ud) 3 ml IH Q4H PRN PRN Reason: Shortness of Breath Stop: 02/25/17 13:01 Potassium Phosphate 15 mmole/ (Sodium Chloride) 255 mls @ 42.5 mls/hr IVPB ONCE ONE Stop: 02/25/17 10:48 Last Admin: 02/25/17 05:56 Dose: 42.5 mls/hr Sodium Chloride (Sodium Chloride 0.9%) 1,000 mls @ 100 mls/hr IV .Q10H BOBBY Last Admin: 02/25/17 05:57 Dose: 100 mls/hr Lorazepam (Ativan) 2 mg PO Q3H PRN; Protocol PRN Reason: Symptoms of alcohol withdrawl Pantoprazole Sodium (Protonix Inj) 40 mg IVP DAILY BOBBY Vitamin B Complex/Vit C/Folic Acid (Nephro-[place]) 1 tab PO DAILY BOBBY Physical Exam - Constitutional Appears: Agitated - Head Exam Head Exam: NORMAL INSPECTION - Neck Exam Neck exam: Negative for: Lymphadenopathy, Meningismus - Respiratory Exam Respiratory Exam: Decreased Breath Sounds - Cardiovascular Exam Cardiovascular Exam: +S1, +S2 - GI/Abdominal Exam GI & Abdominal Exam: Soft. absent: Tenderness Results - Vital Signs Recent Vital Signs: Last Vital Signs Temp 102.7 F H 02/25/17 07:20 Pulse 114 H 02/25/17 07:12 Resp 20 02/25/17 07:12 BP 152/97 H 02/25/17 04:20 Pulse Ox 97 02/25/17 07:12 - Labs Result Diagrams: 02/25/17 02:35 02/25/17 06:30 Labs: Laboratory Results - last 24 hr 02/25/17 06:30 pO2 34 VBG pH 7.36 VBG pCO2 46.0 VBG HCO3 26.0 VBG Total CO2 27.4 VBG O2 Sat (Calc) 63.3 VBG Base Excess 0.1 VBG Potassium 3.5 L Sodium 137.0 Chloride 97.0 L Glucose 118 H Lactate 5.7 H* FiO2 21.0 Venous Blood Potassium 3.5 L Assessment & Plan - Assessment and Plan (Free Text) Plan: Assessment Systemic Inflammatory Response syndrome, R/O due to substance/alcohol withdrawal , consider due to acute pancreatitis, R/O sepsis ethanol abuse polysubstance abuse Plan Awaiting CT head, abdomen and pelvis; lipase is elevated at 464; started patient on Vancomycin and Zosyn pending blood, urine cx, PCT, CXR follow up Neurology evaluation Will follow clinically
[2017-02-25 11:05] LABS: ARTERIAL BLOOD GAS HCO3 20.6 mmol/L (21-28); ARTERIAL BLOOD GAS O2 CAPACITY 16.6 mL/dl (16-24); ARTERIAL BLOOD GAS O2 CONTENT 16.1 ML/dl (15-23); ARTERIAL BLOOD GAS PH 7.58 (7.35-7.45); ARTERIAL BLOOD HGB O2 SAT 94.3 % (95.0-98.0); CARBOXYHEMOGLOBIN 1.7 % (0.5-1.5); HHB 2.9 % (0-5)
--- NOTE | 2017-02-25 12:05 | CP.CCUPN ---
<Steven Bakern - Last Filed: 02/25/17 13:52> CCU Subjective - Physician Review Subjective (Free Text): This patient is agitated this AM and is unable to give a subjective. 02/25/17 12:01 CCU Objective - Vital Signs / Intake & Output Vital Signs (Last 4 hours): Vital Signs Temp Pulse Pulse Resp BP Pulse Ox 02/25/17 10:02 101 F H 122 H 16 132/108 H 98 02/25/17 09:34 101 F H 102 H 98 H 18 134/78 Intake and Output (Last 8hrs): Intake & Output 02/24/17 02/25/17 02/25/17 22:59 06:59 14:59 Weight 95 lb Other: Voiding Method Incontinent - Physical Exam Head: Positive for: Atraumatic, Normocephalic Pupils: Positive for: PERRL Extroacular Muscles: Positive for: EOMI Conjunctiva: Positive for: Normal Mouth: Positive for: Moist Mucous Membranes Respiratory/Chest: Positive for: Good Air Exchange, Rhonchi. Negative for: Respiratory Distress, Accessory Muscle Use Cardiovascular: Positive for: Regular Rate and Rhythm, Normal S1, S2. Negative for: Murmurs Abdomen: Positive for: Normal Bowel Sounds. Negative for: Tenderness, Distention, Peritoneal Signs Upper Extremity: Positive for: Normal Inspection. Negative for: Cyanosis, Edema Lower Extremity: Positive for: Normal Inspection. Negative for: Edema Neurological: Positive for: GCS=15, CN II-XII Intact, Speech Normal, Motor Func Grossly Intact, Normal Sensory Function Skin: Positive for: Warm, Dry, Normal Color. Negative for: Rashes Psychiatric: Positive for: Alert, Agitated. Negative for: Oriented x 3 - Medications Active Medications: Active Medications Generic Name Dose Route Start Last Admin Trade Name Freq PRN Reason Stop Dose Admin Acetaminophen 650 mg 02/25/17 04:54 Tylenol 325mg Tab PO Q6H PRN Fever >100.4 F Albuterol/Ipratropium 3 ml 02/25/17 04:54 Duoneb 3 Mg/0.5 Mg (3 Ml) Ud IH 02/25/17 13:01 Q4H PRN Shortness of Breath Sodium Chloride 1,000 mls @ 100 mls/hr 02/25/17 04:55 02/25/17 05:57 Sodium Chloride 0.9% IV 100 mls/hr .Q10H BOBBY Administration Piperacillin Sod/Tazobactam Sod 100 mls @ 200 mls/hr 02/25/17 12:00 Zosyn 3.375 In Ns 100ml IVPB 03/04/17 12:01 Q6 BOBBY Protocol Dexmedetomidine HCl 400 mcg in 100 mls @ 2.041 mls/hr 02/25/17 09:34 10:10 Precedex 4 Mcg/Ml (100 Ml) IV 0.2 mcg/kg/hr .Q24H PRN 2.041 mls/hr Sedation Administration Protocol 0.2 MCG/KG/HR Lorazepam 2 mg 02/25/17 05:01 Ativan PO Q3H PRN Symptoms of alcohol withdrawl Protocol Pantoprazole Sodium 40 mg 02/25/17 10:00 02/25/17 10:10 Protonix Inj IVP 40 mg DAILY BOBBY Administration Vitamin B Complex/Vit C/Folic Acid 1 tab 02/25/17 10:00 02/25/17 10:08 Nephro-[place] PO Not Given DAILY BOBBY - Patient Studies Lab Studies: Lab Studies 02/25/17 02/25/17 02/25/17 Range/Units 11:00 10:50 06:30 pCO2 22 L (35-45) mm/Hg pO2 67.0 L (30-55) mm/Hg HCO3 20.6 L (21-28) mmol/L ABG pH 7.58 H (7.35-7.45) ABG Total CO2 21.3 L (22-28) mmol.L ABG O2 Saturation 97.0 (95-98) % ABG O2 Content 16.1 (15-23) ML/dl ABG Base Excess 0.2 (-2.0-3.0) mmol/L ABG Hemoglobin 12.1 (11.7-17.4) g/dL ABG Carboxyhemoglobin 1.7 H (0.5-1.5) % POC ABG HHb (Measured) 2.9 (0-5) % ABG Methemoglobin 1.0 (0.0-3.0) % ABG O2 Capacity 16.6 (16-24) mL/dl VBG pH (7.32-7.43) VBG pCO2 (40-60) VBG HCO3 (21-28) mmol/l VBG Total CO2 (22-28) mmol.L VBG O2 Sat (Calc) (40-65) % VBG Base Excess (0.0-2.0) mmol/L VBG Potassium (3.6-5.2) mmol/L Hgb O2 Saturation 94.3 L (95.0-98.0) % Sodium 135 (132-148) mmol/L Chloride 99 (98-107) mmol/L Glucose (65-105) mg/dl Lactate (0.7-2.1) mmol/L FiO2 21.0 % Potassium 3.8 (3.6-5.0) mmol/L Carbon Dioxide 20 L (21-33) mmol/L Anion Gap 20 (10-20) BUN 7 (7-21) mg/dL Creatinine 0.5 (0.5-1.4) mg/dL Est GFR ( Amer) > 60 Est GFR (Non-Af Amer) > 60 Random Glucose 110 (70-110) mg/dL Serum Osmolality 273 (271-296) mosm/kg Calcium 9.4 (8.4-10.5) mg/dL Phosphorus 2.1 L (2.5-4.5) mg/dL Magnesium 1.2 L (1.7-2.2) mg/dL Venous Blood Potassium (3.6-5.2) mmol/L 02/25/17 Range/Units 06:30 pCO2 (35-45) mm/Hg pO2 34 (30-55) mm/Hg HCO3 (21-28) mmol/L ABG pH (7.35-7.45) ABG Total CO2 (22-28) mmol.L ABG O2 Saturation (95-98) % ABG O2 Content (15-23) ML/dl ABG Base Excess (-2.0-3.0) mmol/L ABG Hemoglobin (11.7-17.4) g/dL ABG Carboxyhemoglobin (0.5-1.5) % POC ABG HHb (Measured) (0-5) % ABG Methemoglobin (0.0-3.0) % ABG O2 Capacity (16-24) mL/dl VBG pH 7.36 (7.32-7.43) VBG pCO2 46.0 (40-60) VBG HCO3 26.0 (21-28) mmol/l VBG Total CO2 27.4 (22-28) mmol.L VBG O2 Sat (Calc) 63.3 (40-65) % VBG Base Excess 0.1 (0.0-2.0) mmol/L VBG Potassium 3.5 L (3.6-5.2) mmol/L Hgb O2 Saturation (95.0-98.0) % Sodium 137.0 (132-148) mmol/L Chloride 97.0 L (98-107) mmol/L Glucose 118 H (65-105) mg/dl Lactate 5.7 H* (0.7-2.1) mmol/L FiO2 21.0 % Potassium (3.6-5.0) mmol/L Carbon Dioxide (21-33) mmol/L Anion Gap (10-20) BUN (7-21) mg/dL Creatinine (0.5-1.4) mg/dL Est GFR ( Amer) Est GFR (Non-Af Amer) Random Glucose (70-110) mg/dL Serum Osmolality (271-296) mosm/kg Calcium (8.4-10.5) mg/dL Phosphorus (2.5-4.5) mg/dL Magnesium (1.7-2.2) mg/dL Venous Blood Potassium 3.5 L (3.6-5.2) mmol/L Laboratory Results - last 24 hr 02/25/17 02/25/17 02/25/17 06:30 06:30 10:50 pCO2 pO2 34 HCO3 ABG pH ABG Total CO2 ABG O2 Saturation ABG O2 Content ABG Base Excess ABG Hemoglobin ABG Carboxyhemoglobin POC ABG HHb (Measured) ABG Methemoglobin ABG O2 Capacity VBG pH 7.36 VBG pCO2 46.0 VBG HCO3 26.0 VBG Total CO2 27.4 VBG O2 Sat (Calc) 63.3 VBG Base Excess 0.1 VBG Potassium 3.5 L Hgb O2 Saturation Sodium 137.0 135 Chloride 97.0 L 99 Glucose 118 H Lactate 5.7 H* FiO2 21.0 Potassium 3.8 Carbon Dioxide 20 L Anion Gap 20 BUN 7 Creatinine 0.5 Est GFR ( Amer) > 60 Est GFR (Non-Af Amer) > 60 Random Glucose 110 Serum Osmolality 273 Calcium 9.4 Phosphorus 2.1 L Magnesium 1.2 L Venous Blood Potassium 3.5 L 02/25/17 11:00 pCO2 22 L pO2 67.0 L HCO3 20.6 L ABG pH 7.58 H ABG Total CO2 21.3 L ABG O2 Saturation 97.0 ABG O2 Content 16.1 ABG Base Excess 0.2 ABG Hemoglobin 12.1 ABG Carboxyhemoglobin 1.7 H POC ABG HHb (Measured) 2.9 ABG Methemoglobin 1.0 ABG O2 Capacity 16.6 VBG pH VBG pCO2 VBG HCO3 VBG Total CO2 VBG O2 Sat (Calc) VBG Base Excess VBG Potassium Hgb O2 Saturation 94.3 L Sodium Chloride Glucose Lactate FiO2 21.0 Potassium Carbon Dioxide Anion Gap BUN Creatinine Est GFR ( Amer) Est GFR (Non-Af Amer) Random Glucose Serum Osmolality Calcium Phosphorus Magnesium Venous Blood Potassium Fingerstick Blood Sugar Results: 164 Review of Systems - Review of Systems Systems not reviewed;Unavailable: Altered Mental Status Critical Care Progress Note - Ventilator Checklist Head of Bed 30 Degrees: Yes PUD Prophalyxis: Yes DVT Prophylaxis: Yes - Extremities/Vascular Does the Patient have a Central Venous Catheter?: No Does the Patient need a Central Venous Catheter?: No Does the Patient have a Horowitz Catheter?: No Does the Patient need a Horowitz Catheter?: No - Restraints Justification for Restraints: High risk for removing IV access - Prophylaxis GI Prophylaxis GI: PPI - Prophylaxis DVT Prophylaxis DVT: SCDs Assessment/Plan - Assessment and Plan (Free Text) Assessment: This is a 51F who presented with Nausea/Vomiting/Abdominal Pain and disorientation, brought to the ICU with Fevers, tachycardia, AMS, and presumed ETOH withdrawal. Neuro: Patient is AAOX0, No focal neurological deficits CV: Hemodynamically stable on precidex Pulm: PO2 67 on room air if PO2 decreases will repeat cxr and consider diaereses GI: Nausea Zofran PRN : Incontinent Endo: Low Mg, repeated ID: Febrile with elevated WBC, pt is virgen cultured empiric vanc and zosyn started Heme: Leuocytosis empiric vanc and zosyn started Other: Patient is agitated, precidex for sedation, posi and wrist restraints. Will Discuss with Dr. Lona Baker PGY-1 <Lona PUGA,Elliot H - Last Filed: 02/25/17 14:56> CCU Objective - Vital Signs / Intake & Output Vital Signs (Last 4 hours): Vital Signs Temp Pulse Resp BP Pulse Ox 02/25/17 14:52 70 02/25/17 14:48 72 35 H 02/25/17 14:47 73 37 H 02/25/17 14:40 72 54 H 100 02/25/17 14:30 69 37 H 100 02/25/17 14:21 72 35 H 02/25/17 14:20 72 34 H 02/25/17 14:19 77 34 H 02/25/17 14:18 82 41 H 02/25/17 14:17 102 H 33 H 02/25/17 14:16 91 H 24 02/25/17 14:15 92 H 24 02/25/17 14:14 94 H 31 H 02/25/17 14:13 86 36 H 02/25/17 14:12 84 30 H 02/25/17 14:11 89 20 02/25/17 14:10 82 24 02/25/17 14:09 81 65 H 02/25/17 14:08 76 44 H 02/25/17 14:07 81 24 02/25/17 14:06 88 94 H 02/25/17 14:05 73 36 H 02/25/17 14:04 73 33 H 02/25/17 14:03 74 35 H 02/25/17 14:02 76 37 H 02/25/17 14:01 81 23 02/25/17 14:00 155/97 H 02/25/17 13:59 95 H 67 L 02/25/17 13:50 94 H 35 H 96 02/25/17 13:40 70 39 H 100 02/25/17 13:32 100.1 F H 98 H 20 135/98 H 98 02/25/17 13:30 107 H 35 H 71 L 02/25/17 13:20 72 38 H 100 02/25/17 13:10 93 H 26 H 81 L 02/25/17 13:01 92 H 34 H 135/98 H 93 L 02/25/17 13:00 99 H 91 L 02/25/17 12:58 94 H 29 H 02/25/17 12:57 94 H 34 H 02/25/17 12:50 80 38 H 100 02/25/17 12:44 90 53 H 02/25/17 12:40 82 42 H 100 02/25/17 12:30 78 40 H 100 02/25/17 12:20 103 H 22 02/25/17 12:19 100 H 45 H 02/25/17 12:18 95 H 34 H 02/25/17 12:17 95 H 36 H 02/25/17 12:10 85 39 H 100 02/25/17 12:00 88 43 H 142/92 H 96 02/25/17 11:50 97 H 35 H 80 L 02/25/17 11:43 106 H 43 H 02/25/17 11:42 99 H 34 H 02/25/17 11:40 86 38 H 100 02/25/17 11:31 105 H 41 H 02/25/17 11:30 99 H 24 02/25/17 11:29 107 H 40 H 02/25/17 11:28 86 40 H 02/25/17 11:27 86 34 H 02/25/17 11:26 86 39 H 02/25/17 11:25 86 40 H 02/25/17 11:24 88 31 H 02/25/17 11:23 88 41 H 02/25/17 11:22 88 37 H 02/25/17 11:21 86 35 H 02/25/17 11:20 97 H 44 H 02/25/17 11:19 110 H 32 H 02/25/17 11:18 111 H 24 Intake and Output (Last 8hrs): Intake & Output 02/24/17 02/25/17 02/25/17 22:59 06:59 14:59 Intake Total 20 Balance 20 Weight 95 lb Intake: IV 20 Other: Voiding Method Incontinent - Medications Active Medications: Active Medications Generic Name Dose Route Start Last Admin Trade Name Freq PRN Reason Stop Dose Admin Acetaminophen 650 mg 02/25/17 04:54 Tylenol 325mg Tab PO Q6H PRN Fever >100.4 F Sodium Chloride 1,000 mls @ 100 mls/hr 02/25/17 04:55 02/25/17 05:57 Sodium Chloride 0.9% IV 100 mls/hr .Q10H BOBBY Administration Piperacillin Sod/Tazobactam Sod 100 mls @ 200 mls/hr 02/25/17 12:00 02/25/17 13:30 Zosyn 3.375 In Ns 100ml IVPB 03/04/17 12:01 200 mls/hr Q6 BOBBY Administration Protocol Dexmedetomidine HCl 400 mcg in 100 mls @ 2.041 mls/hr 02/25/17 09:34 14:02 Precedex 4 Mcg/Ml (100 Ml) IV 0.6 mcg/kg/hr .Q24H PRN 6.123 mls/hr Sedation Titration Protocol 0.2 MCG/KG/HR Folic Acid 1 mg/ Thiamine HCl 1,011.2 mls @ 100 mls/hr 02/25/17 12:00 100 mg/ Multivitamins/Vitamin IV C 10 ml/ Dextrose .Q10H7M BOBBY Lorazepam 2 mg 02/25/17 05:01 Ativan PO Q3H PRN Symptoms of alcohol withdrawl Protocol Pantoprazole Sodium 40 mg 02/25/17 10:00 02/25/17 10:10 Protonix Inj IVP 40 mg DAILY BOBBY Administration Vitamin B Complex/Vit C/Folic Acid 1 tab 02/25/17 10:00 02/25/17 10:08 Nephro-[place] PO Not Given DAILY BOBBY - Patient Studies Lab Studies: Lab Studies 02/25/17 02/25/17 02/25/17 Range/Units 13:50 11:00 10:50 pCO2 22 L (35-45) mm/Hg pO2 67.0 L (30-55) mm/Hg HCO3 20.6 L (21-28) mmol/L ABG pH 7.58 H (7.35-7.45) ABG Total CO2 21.3 L (22-28) mmol.L ABG O2 Saturation 97.0 (95-98) % ABG O2 Content 16.1 (15-23) ML/dl ABG Base Excess 0.2 (-2.0-3.0) mmol/L ABG Hemoglobin 12.1 (11.7-17.4) g/dL ABG Carboxyhemoglobin 1.7 H (0.5-1.5) % POC ABG HHb (Measured) 2.9 (0-5) % ABG Methemoglobin 1.0 (0.0-3.0) % ABG O2 Capacity 16.6 (16-24) mL/dl VBG pH (7.32-7.43) VBG pCO2 (40-60) VBG HCO3 (21-28) mmol/l VBG Total CO2 (22-28) mmol.L VBG O2 Sat (Calc) (40-65) % VBG Base Excess (0.0-2.0) mmol/L VBG Potassium (3.6-5.2) mmol/L Hgb O2 Saturation 94.3 L (95.0-98.0) % Sodium (132-148) mmol/L Chloride (98-107) mmol/L Glucose (65-105) mg/dl Lactate (0.7-2.1) mmol/L FiO2 21.0 % Potassium (3.6-5.0) mmol/L Carbon Dioxide (21-33) mmol/L Anion Gap (10-20) BUN (7-21) mg/dL Creatinine (0.5-1.4) mg/dL Est GFR ( Amer) Est GFR (Non-Af Amer) Random Glucose (70-110) mg/dL Serum Osmolality 273 (271-296) mosm/kg Lactic Acid 1.2 (0.7-2.1) mmol/L Calcium (8.4-10.5) mg/dL Phosphorus (2.5-4.5) mg/dL Magnesium (1.7-2.2) mg/dL Venous Blood Potassium (3.6-5.2) mmol/L Hepatitis A IgM Ab (NEGATIVE) Hep Bs Antigen (NEGATIVE) Hep B Core IgM Ab (NEGATIVE) Hepatitis C Antibody (NEGATIVE) 02/25/17 02/25/17 02/25/17 Range/Units 06:30 06:30 06:30 pCO2 (35-45) mm/Hg pO2 34 (30-55) mm/Hg HCO3 (21-28) mmol/L ABG pH (7.35-7.45) ABG Total CO2 (22-28) mmol.L ABG O2 Saturation (95-98) % ABG O2 Content (15-23) ML/dl ABG Base Excess (-2.0-3.0) mmol/L ABG Hemoglobin (11.7-17.4) g/dL ABG Carboxyhemoglobin (0.5-1.5) % POC ABG HHb (Measured) (0-5) % ABG Methemoglobin (0.0-3.0) % ABG O2 Capacity (16-24) mL/dl VBG pH 7.36 (7.32-7.43) VBG pCO2 46.0 (40-60) VBG HCO3 26.0 (21-28) mmol/l VBG Total CO2 27.4 (22-28) mmol.L VBG O2 Sat (Calc) 63.3 (40-65) % VBG Base Excess 0.1 (0.0-2.0) mmol/L VBG Potassium 3.5 L (3.6-5.2) mmol/L Hgb O2 Saturation (95.0-98.0) % Sodium 135 137.0 (132-148) mmol/L Chloride 99 97.0 L (98-107) mmol/L Glucose 118 H (65-105) mg/dl Lactate 5.7 H* (0.7-2.1) mmol/L FiO2 21.0 % Potassium 3.8 (3.6-5.0) mmol/L Carbon Dioxide 20 L (21-33) mmol/L Anion Gap 20 (10-20) BUN 7 (7-21) mg/dL Creatinine 0.5 (0.5-1.4) mg/dL Est GFR ( Amer) > 60 Est GFR (Non-Af Amer) > 60 Random Glucose 110 (70-110) mg/dL Serum Osmolality (271-296) mosm/kg Lactic Acid (0.7-2.1) mmol/L Calcium 9.4 (8.4-10.5) mg/dL Phosphorus 2.1 L (2.5-4.5) mg/dL Magnesium 1.2 L (1.7-2.2) mg/dL Venous Blood Potassium 3.5 L (3.6-5.2) mmol/L Hepatitis A IgM Ab Negative (NEGATIVE) Hep Bs Antigen Negative (NEGATIVE) Hep B Core IgM Ab Negative (NEGATIVE) Hepatitis C Antibody Reactive H (NEGATIVE) Laboratory Results - last 24 hr 02/25/17 02/25/17 02/25/17 06:30 06:30 06:30 pCO2 pO2 34 HCO3 ABG pH ABG Total CO2 ABG O2 Saturation ABG O2 Content ABG Base Excess ABG Hemoglobin ABG Carboxyhemoglobin POC ABG HHb (Measured) ABG Methemoglobin ABG O2 Capacity VBG pH 7.36 VBG pCO2 46.0 VBG HCO3 26.0 VBG Total CO2 27.4 VBG O2 Sat (Calc) 63.3 VBG Base Excess 0.1 VBG Potassium 3.5 L Hgb O2 Saturation Sodium 137.0 135 Chloride 97.0 L 99 Glucose 118 H Lactate 5.7 H* FiO2 21.0 Potassium 3.8 Carbon Dioxide 20 L Anion Gap 20 BUN 7 Creatinine 0.5 Est GFR ( Amer) > 60 Est GFR (Non-Af Amer) > 60 Random Glucose 110 Serum Osmolality Lactic Acid Calcium 9.4 Phosphorus 2.1 L Magnesium 1.2 L Venous Blood Potassium 3.5 L Hepatitis A IgM Ab Negative Hep Bs Antigen Negative Hep B Core IgM Ab Negative Hepatitis C Antibody Reactive H 02/25/17 02/25/17 02/25/17 10:50 11:00 13:50 pCO2 22 L pO2 67.0 L HCO3 20.6 L ABG pH 7.58 H ABG Total CO2 21.3 L ABG O2 Saturation 97.0 ABG O2 Content 16.1 ABG Base Excess 0.2 ABG Hemoglobin 12.1 ABG Carboxyhemoglobin 1.7 H POC ABG HHb (Measured) 2.9 ABG Methemoglobin 1.0 ABG O2 Capacity 16.6 VBG pH VBG pCO2 VBG HCO3 VBG Total CO2 VBG O2 Sat (Calc) VBG Base Excess VBG Potassium Hgb O2 Saturation 94.3 L Sodium Chloride Glucose Lactate FiO2 21.0 Potassium Carbon Dioxide Anion Gap BUN Creatinine Est GFR ( Amer) Est GFR (Non-Af Amer) Random Glucose Serum Osmolality 273 Lactic Acid 1.2 Calcium Phosphorus Magnesium Venous Blood Potassium Hepatitis A IgM Ab Hep Bs Antigen Hep B Core IgM Ab Hepatitis C Antibody Attending/Attestation - Attestation I have personally seen and examined this patient.: Yes I have fully participated in the care of the patient.: Yes I have reviewed all pertinent clinical information: Yes Notes (Text): 02/25/17 14:55 51 y/o F brought from the ER with AMS and agitation Likely heroin abuse from history , but also alcohol maybe a contributer. Placed on Precedex for agiation and withdrawl. Elevated WBC, w/o source, pending ct abd/ pelvis . Empiric abx given w/ vanc and Zosyn . CX pending DVT P PPI 1:1, restraints Need more hx from family. cc time 65 min
[2017-02-25] MEDS: Piperacillin/Tazobact 3.375 gm 100 ML IVPB SCH (13:30)
--- NOTE | 2017-02-25 15:32 | CARD ---
APPROVED REPORT EKG Measurement Heart [id number] <Conclusion> Sinus tachycardia with short UT STTW changes c/w ischemia
[2017-02-25] MEDS: Folic Acid 1 MG, Thiamine 100 MG, Multivitamin (MVI) 10 ML in Dextrose 5% In Water 1,00... IV SCH (16:06)
--- NOTE | 2017-02-25 21:32 | CT ---
EXAM: CT Head Without Intravenous Contrast CLINICAL HISTORY: 51 years old, female; Signs and symptoms; Altered mental status/memory loss; Additional info: AMS TECHNIQUE: Axial computed tomography images of the head/brain without intravenous contrast. This CT exam was performed using one or more of the following dose reduction techniques: automated exposure control, adjustment of the mA and/or kV according to patient size, and/or use of iterative reconstruction technique. COMPARISON: No relevant prior studies available. FINDINGS: Brain: Mild atrophy. No intracranial hemorrhage. No mass. No definite edema. Ventricles: No hydrocephalus. Bones/joints: No acute fracture. Soft tissues: Unremarkable. Vasculature: Mild atherosclerotic disease of intracranial arteries. Sinuses: No acute sinusitis. Mastoid air cells: No mastoid effusion. Orbits: Unremarkable as visualized. IMPRESSION: 1. No acute intracranial abnormality. 2. Incidental/non-acute findings are described above.
--- NOTE | 2017-02-25 21:46 | CT ---
EXAM: CT Abdomen and Pelvis Without Intravenous Contrast CLINICAL HISTORY: 51 years old, female; Signs and symptoms; Other: Sepsis; Additional info: AMS and sepsis TECHNIQUE: Axial computed tomography images of the abdomen and pelvis without intravenous contrast. This CT exam was performed using one or more of the following dose reduction techniques: automated exposure control, adjustment of the mA and/or kV according to patient size, and/or use of iterative reconstruction technique. Coronal and sagittal reformatted images were created and reviewed. COMPARISON: No relevant prior studies available. FINDINGS: Limitations: Lack of intravenous contrast. Motion artifact - mild. Lower thorax: Scattered mild patchy groundglass/airspace opacities within lung bases. ABDOMEN: Liver: Fatty infiltration. Gallbladder and bile ducts: No calcified stones. No ductal dilation. Pancreas: Unremarkable. No ductal dilation. Spleen: No splenomegaly. Adrenals: No mass. Kidneys and ureters: Mild atrophy of RIGHT kidney. Punctate calculus within RIGHT kidney. Mild pelvocaliectasis of both kidneys. Stomach and bowel: Mild mural thickening vs underdistention of descending, sigmoid colon. No associated inflammatory stranding. No obstruction. Appendix: No findings to suggest acute appendicitis. PELVIS: Bladder: Mild bladder distention. No stones. Reproductive: Unremarkable as visualized. ABDOMEN and PELVIS: Intraperitoneal space: Small free fluid within abdomen and pelvis. No free air. Bones/joints: Degenerative changes of lower lumbar spine. No acute fracture. Soft tissues: Unremarkable. Vasculature: Mild atherosclerotic disease. No abdominal aortic aneurysm. Lymph nodes: No pathologically enlarged lymph nodes. IMPRESSION: 1. Probable multifocal pneumonia. Followup to resolution to exclude underlying pathology. 2. Mild colitis versus underdistention. Clinical correlation is needed. 3. Small ascites. 4. Incidental/non-acute findings are described above.
[2017-02-25] MEDS: Vancomycin 500mg in NS 500 MG/100 ML BAG IVPB SCH (22:01)
[2017-02-26] MEDS: Piperacillin/Tazobact 3.375 gm 100 ML IVPB SCH ×3 (01:48→12:47)
[2017-02-26] MEDS: Folic Acid 1 MG, Thiamine 100 MG, Multivitamin (MVI) 10 ML in Dextrose 5% In Water 1,00... IV SCH ×2 (03:14→14:45)
[2017-02-26 04:37] LABS: ADD MANUAL DIFF? NO
[2017-02-26 04:49] LABS: BASO # 0.03 K/mm3 (0.0-2.0); BASO % 0.3 % (0.0-3.0); GRAN # 7.67 (1.4-6.5); GRAN % 89.5 % (50.0-68.0); HEMATOCRIT 43.2 % (36.0-48.0); LYMPH # 0.6 (1.2-3.4); LYMPH % 7.1 % (22.0-35.0); MEAN CELL VOLUME 92.5 fL (80.0-105.0); MEAN CORPUSCULAR HEMOGLOBIN 32.8 pg (25.0-35.0); MEAN CORPUSCULAR HGB CONC 35.4 g/dl (31.0-37.0); MEAN PLATELET VOLUME 11.8 fl (7.0-11.0); MONO # 0.3 (0.1-0.6); MONO % 3.1 % (1.0-6.0); PLATELET COUNT 85 10^3/uL (120.0-450.0); RED CELL DISTRIBUTION WIDTH 14.1 % (11.5-14.5); WHITE BLOOD COUNT 8.6 10^3/ul (4.5-11.0)
[2017-02-26 04:51] LABS: ALB/GLOB RATIO 0.8 (1.1-1.8); ALKALINE PHOSPHATASE 81 U/L (38-133); ALT/SGPT 486 U/L (7-56); BILIRUBIN,TOTAL 2.1 mg/dL (0.2-1.3); BLOOD UREA NITROGEN 10 mg/dL (7-21); CALCIUM 9.5 mg/dL (8.4-10.5); CARBON DIOXIDE 25 mmol/L (21-33); CHLORIDE 103 mmol/L (95-110); GFR AFRICAN-AMERICAN > 60; GLUCOSE,RANDOM 125 mg/dL (70-110); MAGNESIUM 1.8 mg/dL (1.7-2.2); SODIUM 136 mmol/L (132-148)
[2017-02-26 05:04] LABS: INR 1.27 (0.93-1.08)
[2017-02-26 05:13] VITALS: TEMP 98.4
[2017-02-26 05:38] LABS: AST/SGOT 3073 U/L (15-39)
[2017-02-26] MEDS ORDERED: D5W IV SCH (05:41)
[2017-02-26] MEDS ORDERED: POTASSIUM CHL IV SCH (05:41)
[2017-02-26 05:42] LABS: POTASSIUM 2.9 mmol/L (3.6-5.0)
--- NOTE | 2017-02-26 07:43 | CON ---
DATE: 02/25/2017 A 51-year-old female with a past medical history of EtOH abuse and polysubstance abuse and came to [facility] because responding inappropriately and called to evaluate the patient. The patient not answer ing the questions, sedated. PAST MEDICAL HISTORY: As above. SOCIAL HISTORY: Daily drinks and does not smoke. CAT scan of the head ordered. ALLERGIES: No known drug allergies. SOCIAL HISTORY: Smokes and drinks. PHYSICAL EXAMINATION: HEENT: Normocephalic, atraumatic. NECK: Supple. NEUROLOGIC: The patient lethargic, unable to answer the questions. Sedated. Pupil reactive. Spont aneous movement of the extremities noted. Deep tendon reflexes 1+. Plantars downgoing. LABORATORY DATA: WBC 20.7, hemoglobin 14.2, hematocrit 41, platelet 136. Sodium 133, potassium 2.9, chloride 94, CO2 of 23, glucose 148, BUN 6, creatinine 0.6. PLAN: Continue present management. We will do the CAT scan of the head and further management after results of above tests. Schuyler Ragland MD cc: [id number] TT: 02/25/2017 19:23:04 Confirmation # [id number] Dictation # [id number]
[2017-02-26] MEDS ORDERED: WATER IV ONE ×2 (07:58→13:13)
[2017-02-26] MEDS ORDERED: DEXTROSE 5% IV ONE ×2 (07:58→13:13)
[2017-02-26] MEDS ORDERED: ACETYLCYSTEINE IV ONE ×2 (07:58→13:13)
--- NOTE | 2017-02-26 08:48 | PN ---
DATE: 02/26/2017 The patient seen and examined at bedside. She is much more comfortable. She is alert, awake and oriented. She is not in respiratory or otherwise distress. PHYSICAL EXAMINATION: VITAL SIGNS: Heart rate 73, blood pressure 152/90, oxygen saturation varies between 93% and 96%. HEAD AND NECK: Atraumatic. LUNGS: Clear to auscultation bilaterally. HEART: Regular rate and rhythm. S1, S2 normal. ABDOMEN: Soft, mildly tender in the right upper quadrant, but no peritoneal signs. MUSCULOSKELETAL: Trace bilateral pedal and ankle edema. NEUROLOGIC: The patient moves all extremities spontaneously. SKIN: Moist. PSYCHIATRIC: The patient is alert and oriented x 3. LABORATORY DATA: WBC 8.6 down from 20.7, hemoglobin 15.3, platelet count 85. Sodium 136, potassium 2.9 (supplemented), chloride 103, carbon dioxide 25, BUN 10, creatinine 0.5, glucose 125. AST 3073 and ALT 486 (significant jump from yesterday's numbers), bilirubin 2.1, magnesium 1.8, calcium 9.5. Lipase is pending. Lactic acid is pending. Yesterday, lipase was slightly elevated. Toxicology screen is positive for opiates. Tylenol level less than 10. Hepatitis B profile is negative. However, hepatitis C antibody is positive. Urine has protein in it, blood, RBCs 1-3, WBC 1-3. CPK 148 and today is pending. MEDICATIONS: NAC IV, banana bag at 100 mL per hour, Precedex was stopped, Ativan p.r.n., Solu-Medrol 20 mg IV q. 12, Protonix, vancomycin, vitamin B, Zosyn. ASSESSMENT AND PLAN: This is a 51-year-old lady who presented with heroin overdose and likely heroin-related pneumonitis (patient was snorting it). It is unclear what other drugs she was using with heroin. However, she denies any mushroom use, any Percocet overdose or Tylenol use. She had some infiltrates on the CAT scan in the lower lobes of her thorax (CAT scan was done of the abdomen and pelvis) and initially was treated for community-acquired pneumonia plus/minus pneumonitis. Today morning, her mental status substantially improved. Precedex was stopped; however, her LFTs and bilirubin jumped up significantly. While CPK (cam back later) also came back elevated, LFTs are elevated out of proportion to rhabdomyolysis. Patient is on IVF--banana bag @ 200 cc/hr Abdominal ultrasound was ordered. Tylenol p.r.n. was stopped. In fact the only dose of Tylenol was given in ER yesterday, when she had fever ( 650 mg). Gastroenterology consult was called. Meanwhile, possibility of alcoholic hepatitis (patient has a heavy h/o alcohol abuse and reports binge drinking the night before admission) cannot be ruled out, especially in the setting of initial leukocytosis and fever. Solu-Medrol 20 mg IV q. 12 was started and the first dose of acetylcysteine will start as well. I spoke with Dr. Collier who agreed with the above management. Her INR is slightly elevated , but within normal range. It is 1.27. She is alert and oriented x 3 and does not have signs of hepatic encephalopathy. We will continue with IV fluids, n.p.o. We will continue to target euvolemia, euglycemia, normothermia and oxygen saturation more than 90%. We will continue with deep venous thrombosis and gastrointestinal prophylaxis. 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 Infectious disease service is following the patient as well and the patient is on antibiotics as well. We will get a psychiatry consult. Discussed case with [facility] liver fellow-->accepted patient to [facility], patient agreed. Abdo ultrasound--CBD 7 mm, mild hepatomegaly. ccm time 40 min Wally Salgado MD cc: [id number] TT: 02/26/2017 08:47:33 Confirmation # [id number] Dictation # [id number] cricket [place]
[2017-02-26 09:42] LABS: VENOUS BLOOD GAS BASE EXCESS 3.6 mmol/L (0.0-2.0); VENOUS BLOOD PH 7.49 (7.32-7.43)
[2017-02-26] MEDS ORDERED: MethylPREDNISolone 40 mg Vial IVP SCH (10:00)
[2017-02-26] MEDS: Vancomycin 500mg in NS 500 MG/100 ML BAG IVPB SCH (10:22)
--- NOTE | 2017-02-26 10:22 | PN ---
DATE: 02/26/2017 The patient is in bed in no acute distress, nontoxic. No fevers and no chills. The patient was seen earlier this morning in 128, bed 6. Her temperature is down. PHYSICAL EXAMINATION: VITAL SIGNS: Temperature is 98, T-max yesterday was 101, blood pressure of 130/80, respiratory rate of 26, heart rate of 67. HEENT: Unremarkable. NECK: Supple. LUNGS: Have decreased breath sounds. HEART: Normal S1, S2. ABDOMEN: Soft, nontender, no organomegaly, no rebound. LABORATORY EXAMINATION: Reveals a white count of 20,000, is down to 8.6 today with a hemoglobin of 1 5, platelets of 85,000, 89% neutrophils and 7% bandemia. BUN of 10, creatinine of 0.5. Procalcitoni n is 0.18. LFTs are elevated, the AST of 3073 and ALT of 486, a normal alk phos. Urinalysis is note d to have trace ketones, large blood and 1-3 WBCs. Toxicology is noted to be positive for opiate scr een and serology is hepatitis C is positive. It is reactive. Microbiology reveals blood cultures no growth. Urine cultures no growth. The patient's CAT scan of the abdomen and pelvis is reviewed whi ch shows mild colitis versus under distention and they recommend clinical correlation by Dr. Ammon york. The chest x-ray is reported to be negative with indeterminate small patchy reticulonodular op acity in the right upper lobe. Dr. Salgado's note is reviewed. ASSESSMENT AND PLAN: A 51-year-old female with systemic inflammatory response syndrome and possible substance abuse and positive infiltrates on chest x-ray and CAT scan with a negative procalcitonin, p ossibility of colitis with negative blood culture, negative urine culture. Possible chemical pneumon itis, gastric content aspiration from drug use and overdose with acute pancreatitis with a negative p rocalcitonin, would make bacterial pneumonia less likely. HIV is pending. Currently, the patient is on the Zosyn. We will follow closely with you. We will check on the abdominal ultrasound. The [facility] did have a CAT scan of the abdomen. Results are noted. We will follow closely with you. Mauro Celaya MD cc: [id number] TT: 02/26/2017 10:21:08 Confirmation # [id number] Dictation # [id number] tn
--- NOTE | 2017-02-26 10:58 | CON ---
DATE: 02/26/2017 I examined the patient this morning. She is a 51-year-old white female admitted for altered mental status. The patient has a longstanding history of alcohol abuse, polysubstance abuse, admitted to the hospital multiple times. Review of the ER notes, according to the ER doctor and the house staff H and P, history was unobtainable at time of admission. Note that in discussion with the patient in the ICU this morning, the patient was awake and alert and indicated that her name on [employer] was different than her actual name. The patient this morning indicates some epigastric burning. No nausea or vomiting. She also indicates some degree of acid reflux related symptoms. There is no hematemesis or rectal bleeding. Note that I was called to evaluate this patient by Dr. Salgado in the ICU because of altered liver enzymes. PHYSICAL EXAMINATION: VITAL SIGNS: I reviewed this patient's vital signs. HEENT: Noncontributory. LUNGS: Decreased breath sounds basilar bilaterally. HEART: Irregular rhythm. ABDOMEN: Soft. No tenderness elicited. I reviewed this patient's laboratory data. White count on admission 20.7 with an H and H of 14 and 41. Last H and H 15/43. Platelet count 85,000. Serology was reactive for hepatitis C antibody. Toxicology: Acetaminophen level less than 10, urine opiate positive, quantitative alcohol less than 10. INR 1.27. Of interest, acutely this morning, the patient's AST reid acutely from a level of 104 to a level of 3073. The normal ALT on admission 26, subsequently this morning 46. The patient has total protein of 9, globulin 5, bilirubin this morning 2.1. She is hypokalemic on her labs. GFR greater than 60. OVERALL ASSESSMENT: This is a 51-year-old white female with a history of polysubstance abuse, especially alcohol, admitted with change in mental status. Lab evaluation indicates acute onset bump up of her transaminases, which could quite possibly be related to early onset acute alcoholic hepatitis. I discussed this case with Dr. Salgado. She was given prednisone and from what I understand, he had discussed this case with [facility] as a possible transfer. Not much more to offer in this case since the patient will be transferred to [facility] later on this morning for treatment and evaluation purposes. According to Dr. Salgado, the patient has not had any major cardiac issues which would give rise to her abrupt change in transaminases. If that was the case, one would expect an LDH to be extremely elevated as well as the alkaline phosphatase. Again, no arrhythmic or acute cardiac events occurred in this patient to account for the rise in transaminases. Therefore, further workup of this patient will be accomplished at [facility]. Wilmer Collier DO, PhD cc: [id number] TT: 02/26/2017 10:35:24 Confirmation # [id number] Dictation # [id number] en 02/26/2017 09:57:08 ALEJO
[2017-02-26] MEDS: Multivitamin Vitamin B Complex (Nephro-Vite) Tab PO SCH (11:04)
[2017-02-26] MEDS ORDERED: Potassium Chloride 20 mEq/15 ml LIQ UD PO STA (11:29)
--- NOTE | 2017-02-26 13:14 | US ---
HISTORY: Liver failure COMPARISON: None. TECHNIQUE: Grayscale imaging was performed. FINDINGS: LIVER: Measures 16.0 cm. There is diffuse increased echogenicity of the liver parenchyma. No mass. No intrahepatic bile duct dilatation. GALLBLADDER: The gallbladder is contracted. COMMON BILE DUCT: Measures 7 mm. No stones. No dilatation. PANCREAS: Unremarkable as visualized. No mass. No ductal dilatation. RIGHT KIDNEY: Measures 9.8cm. Normal echogenicity. No calculus, mass, or hydronephrosis. LEFT KIDNEY: Measures 11.2cm. Normal echogenicity. No calculus, mass, or hydronephrosis. SPLEEN: Normal in size and contour. No mass. AORTA: No aneurysmal dilatation. IVC: Unremarkable. OTHER FINDINGS: There is small perihepatic ascites. IMPRESSION: Mild hepatomegaly. Diffuse increased echogenicity in the liver may reflect hepatic steatosis however parenchymal infectious/ inflammatory etiologies cannot be entirely excluded. Clinical and laboratory correlation is advised. Mild dilatation of the common bile duct without sonographic evidence for choledocholithiasis. The distal common bile duct is obscured by bowel gas. Small perihepatic ascites.
--- NOTE | 2017-02-26 13:53 | CARD ---
APPROVED REPORT EKG Measurement Heart [id number] CT 104P50 [id number] <Conclusion> Sinus rhythm with short CT with frequent and consecutive premature ventricular complexes and fusion complexes Minimal voltage criteria for LVH, may be normal variant Prolonged QT
[2017-02-26 15:11] VITALS: BP 125/67; PULSE 76; RESP 16; O2SAT 69
[2017-02-26] MEDS ORDERED: Folic Acid 1 MG, Thiamine 100 MG, Multivitamin (MVI) 10 ML in Dextrose 5% In Water 1,00... IV SCH (15:12)
[2017-02-27 03:57] LABS: CHLORIDE URINE 22 mmol/L (32-290)
--- NOTE | 2017-02-27 07:55 | CON ---
DATE: 02/26/2017 REASON FOR CONSULTATION: SVT, cardiac evaluation, history of polysubstance abuse, ETOH abuse. BRIEF CLINICAL HISTORY: This is a 51-year-old female brought here for altered mental status. The trudy díaz is in ICU 128, bed 1. Denies any chest pain, shortness of breath, any palpitation. PAST MEDICAL HISTORY: Significant for seizure disorder, alcohol abuse, polysubstance abuse. Has bee n in rehab for many years. SOCIAL HISTORY: Active tobacco abuse, active alcohol abuse. ALLERGIES: No known drug allergy status. PAST SURGICAL HISTORY: Significant for a possible appendectomy. REVIEW OF SYSTEMS: As per HPI. PHYSICAL EXAMINATION: VITAL SIGNS: Temperature afebrile, heart rate 70, blood pressure 125/67. HEENT: PERRLA. Extraocular muscles intact. NECK: Supple. No carotid bruits. No thyromegaly. CHEST: Clear to auscultation. HEART: S1, S2 regular. ABDOMEN: Soft. EXTREMITIES: Clubbing and cyanosis negative. BLOOD WORKUP: As follows: WBC 8.____, hemoglobin 15.____, hematocrit 43.2, platelet count 85. Chem istry shows sodium ____, potassium 2.9, chloride 103, carbon dioxide 25, anion gap of 11, BUN 10, cre atinine 0.5, magnesium 1.8. Troponin 0.2. EKG: Sinus rhythm with APCs, fusion complex. IMPRESSION: Substance abuse, heroin abuse, toxicology screen positive for opiates at home and probab ly alcohol abuse; electrolyte imbalance, potassium 2.9, probably this arrhythmia is secondary to elec trolyte imbalance. RECOMMENDATION: Correct electrolytes. Echo to assess LV function. Will follow with you. Thank you, Dr. Huber, for providing us opportunity in taking care of the patient. Jorge Navarro MD cc: [id number] TT: 02/27/2017 07:54:50 Confirmation # [id number] Dictation # [id number] mn
--- NOTE | 2017-02-27 09:17 | CARD ---
APPROVED REPORT EXAM: Two-dimensional and M-mode echocardiogram with Doppler and color Doppler. Other Information Quality : AverageRhythm : INDICATION ALCOHOLIC CARDIOMYOPATHY 2D DIMENSIONS Left Atrium (2D)3.0 (1.6-4.0cm)IVSd1.0 (0.7-1.1cm) LVDd4.1 (3.9-5.9cm)LVOT Diameter2.1 (1.8-2.4cm) PWd1.0 (0.7-1.1cm)LVDs3.2 (2.5-4.0cm) FS (%) 21.7 %LVEF (%)44.0 (>50%) M-Mode DIMENSIONS Aortic Root2.60 (2.2-3.7cm)Aortic Cusp Exc.1.50 (1.5-2.0cm) Aortic Valve AoV Peak Fykkqose005.0cm/sAoV VTI29.5cmLVOT Peak Mcatvzao45.6cm/s LVOT VTI14.90cmAVA (VMAX)1.80to5SXX (VTI)1.75cm2 Mitral Valve MV E Vkxhhseb89.6cm/sMV A Vbylayic17.2cm/sE/A ratio1.2 TDI E/Lateral E'0.0E/Medial E'0.0 Tricuspid Valve TR Peak Tcbuoiia199lf/sRAP [id number] Peak Gr.26mmHg [id number] LEFT VENTRICLE The left ventricle is normal size. There is normal left ventricular wall thickness. Left ventricle systolic function is mildly impaired. The Ejection Fraction is 40-45%. There is mild global hypokinesis. RIGHT VENTRICLE The right ventricle is normal size. ATRIA The left atrium size is normal. The right atrium size is normal. The interatrial septum is intact with no evidence for an atrial septal defect. AORTIC VALVE The aortic valve is normal in structure. MITRAL VALVE The mitral valve is normal in structure. Mitral regurgitation is mild. TRICUSPID VALVE The tricuspid valve is normal in structure. There is mild tricuspid regurgitation. PULMONIC VALVE The pulmonary valve is normal in structure. There is trace pulmonic valvular regurgitation. GREAT VESSELS The aortic root is normal in size. PERICARDIAL EFFUSION There is no pericardial effusion. <Conclusion> The left ventricle is normal size. There is normal left ventricular wall thickness. Left ventricle systolic function is mildly impaired. The Ejection Fraction is 40-45%. Mitral regurgitation is mild. There is mild tricuspid regurgitation.
--- NOTE | 2017-02-27 14:35 | CP.PCM.DIS ---
<Tyler Carmen - Last Filed: 02/27/17 14:20> Provider - Provider Date of Admission: 02/25/17 06:24 Attending physician: Kelby Zamorano MD Consults: ID: Dr. Urbina Neuro: Dr. Ragland GI: Dr. Shaikh Cardio: Dr. Friend Time Spent in preparation of Discharge (in minutes): 45 Hospital Course - Lab Results Lab Results: Micro Results 02/25/17 08:30 Nose MRSA Culture (Admit) - Final MRSA NOT DETECTED 02/26/17 05:15 Sputum Gram Stain - Final Most Recent Lab Values WBC 8.6 10^3/ul (4.5-11.0) D 02/26/17 04:20 RBC 4.67 10^6/uL (3.5-6.1) 02/26/17 04:20 Hgb 15.3 gm/dL (12.0-16.0) 02/26/17 04:20 Hct 43.2 % (36.0-48.0) 02/26/17 04:20 MCV 92.5 fL (80.0-105.0) 02/26/17 04:20 MCH 32.8 pg (25.0-35.0) 02/26/17 04:20 MCHC 35.4 g/dl (31.0-37.0) 02/26/17 04:20 RDW 14.1 % (11.5-14.5) 02/26/17 04:20 Plt Count 85 10^3/uL (120.0-450.0) L 02/26/17 04:20 MPV 11.8 fl (7.0-11.0) H 02/26/17 04:20 Gran % 89.5 % (50.0-68.0) H 02/26/17 04:20 Lymph % (Auto) 7.1 % (22.0-35.0) L 02/26/17 04:20 [place] % (Auto) 3.1 % (1.0-6.0) 02/26/17 04:20 Eos % (Auto) 0.0 % (1.5-5.0) L 02/26/17 04:20 Baso % (Auto) 0.3 % (0.0-3.0) 02/26/17 04:20 Gran # 7.67 (1.4-6.5) H 02/26/17 04:20 Lymph # 0.6 (1.2-3.4) L 02/26/17 04:20 [place] # 0.3 (0.1-0.6) 02/26/17 04:20 Eos # 0.0 (0.0-0.7) 02/26/17 04:20 Baso # 0.03 K/mm3 (0.0-2.0) 02/26/17 04:20 Neutrophils % (Manual) 89 % (50.0-70.0) H 02/25/17 02:35 Band Neutrophils % 7 % (0-2) H 02/25/17 02:35 Lymphocytes % (Manual) 2 % (22.0-35.0) L 02/25/17 02:35 Monocytes % (Manual) 2 % (1.0-6.0) 02/25/17 02:35 Platelet Evaluation Normal (NORMAL) 02/25/17 02:35 PT 13.7 Seconds (9.9-11.8) H 02/26/17 04:20 INR 1.27 (0.93-1.08) H 02/26/17 04:20 APTT 30.6 Seconds (23.7-30.8) 02/25/17 02:35 pCO2 22 mm/Hg (35-45) L 02/25/17 11:00 pO2 43 mm/Hg (30-55) 02/26/17 08:00 HCO3 20.6 mmol/L (21-28) L 02/25/17 11:00 ABG pH 7.58 (7.35-7.45) H 02/25/17 11:00 ABG Total CO2 21.3 mmol.L (22-28) L 02/25/17 11:00 ABG O2 Saturation 97.0 % (95-98) 02/25/17 11:00 ABG O2 Content 16.1 ML/dl (15-23) 02/25/17 11:00 ABG Base Excess 0.2 mmol/L (-2.0-3.0) 02/25/17 11:00 ABG Hemoglobin 12.1 g/dL (11.7-17.4) 02/25/17 11:00 ABG Carboxyhemoglobin 1.7 % (0.5-1.5) H 02/25/17 11:00 POC ABG HHb (Measured) 2.9 % (0-5) 02/25/17 11:00 ABG Methemoglobin 1.0 % (0.0-3.0) 02/25/17 11:00 ABG O2 Capacity 16.6 mL/dl (16-24) 02/25/17 11:00 VBG pH 7.49 (7.32-7.43) H 02/26/17 08:00 VBG pCO2 35.0 (40-60) L 02/26/17 08:00 VBG HCO3 26.7 mmol/l (21-28) 02/26/17 08:00 VBG Total CO2 27.8 mmol.L (22-28) 02/26/17 08:00 VBG O2 Sat (Calc) 83.4 % (40-65) H 02/26/17 08:00 VBG Base Excess 3.6 mmol/L (0.0-2.0) H 02/26/17 08:00 VBG Potassium 2.9 mmol/L (3.6-5.2) L 02/26/17 08:00 Hgb O2 Saturation 94.3 % (95.0-98.0) L 02/25/17 11:00 Sodium 138.0 mmol/L (132-148) 02/26/17 08:00 Chloride 104.0 mmol/L (98-107) 02/26/17 08:00 Glucose 128 mg/dl (65-105) H 02/26/17 08:00 Lactate 1.5 mmol/L (0.7-2.1) 02/26/17 08:00 FiO2 21.0 % 02/26/17 08:00 Sodium 136 mmol/L (132-148) 02/26/17 04:20 Potassium 2.9 mmol/L (3.6-5.0) L* D 02/26/17 04:20 Chloride 103 mmol/L (95-110) 02/26/17 04:20 Carbon Dioxide 25 mmol/L (21-33) 02/26/17 04:20 Anion Gap 11 (10-20) 02/26/17 04:20 BUN 10 mg/dL (7-21) 02/26/17 04:20 Creatinine 0.5 mg/dL (0.5-1.4) 02/26/17 04:20 Est GFR ( Amer) > 60 02/26/17 04:20 Est GFR (Non-Af Amer) > 60 02/26/17 04:20 Random Glucose 125 mg/dL (70-110) H 02/26/17 04:20 Hemoglobin A1c 5.2 % (4.2-6.5) 02/25/17 02:35 Serum Osmolality 273 mosm/kg (271-296) 02/25/17 10:50 Lactic Acid 1.2 mmol/L (0.7-2.1) 02/25/17 13:50 Calcium 9.5 mg/dL (8.4-10.5) 02/26/17 04:20 Phosphorus 2.1 mg/dL (2.5-4.5) L 02/25/17 06:30 Magnesium 1.8 mg/dL (1.7-2.2) 02/26/17 04:20 Total Bilirubin 2.1 mg/dL (0.2-1.3) H 02/26/17 04:20 AST 3073 U/L (15-39) H 02/26/17 04:20 ALT 486 U/L (7-56) H 02/26/17 04:20 Alkaline Phosphatase 81 U/L (38-133) 02/26/17 04:20 Ammonia 9 umol/L (9-33) 02/25/17 02:35 Lactate Dehydrogenase 2795 U/L (333-699) H 02/26/17 08:00 Total Creatine Kinase 1364 U/L (35-230) H 02/26/17 08:00 CK-MB (CK-2) 8.2 ng/mL (0.0-3.6) H 02/26/17 08:00 CK-MB (CK-2) % 0.6 % (2.5-3.0) L 02/26/17 08:00 Troponin I 0.02 ng/mL 02/25/17 02:35 Total Protein 9.0 g/dL (5.8-8.3) H 02/26/17 04:20 Albumin 4.0 g/dL (3.0-4.8) 02/26/17 04:20 Globulin 5.0 gm/dL 02/26/17 04:20 Albumin/Globulin Ratio 0.8 (1.1-1.8) L 02/26/17 04:20 Triglycerides 94 mg/dL (35-160) 02/25/17 02:35 Cholesterol 227 mg/dL (130-200) H 02/25/17 02:35 LDL Cholesterol Direct 82 mg/dL (0-129) 02/25/17 02:35 HDL Cholesterol 105 mg/dL (29-60) H 02/25/17 02:35 Amylase 256 U/L (35-125) H 02/25/17 02:35 Lipase 342 U/L (23-300) H 02/26/17 10:59 Procalcitonin 0.18 NG/ML (0.19-0.49) L 02/25/17 06:30 Free T4 0.86 ng/dL (0.78-2.19) 02/25/17 02:35 TSH 3rd Generation 0.50 mIU/mL (0.46-4.68) 02/25/17 02:35 Venous Blood Potassium 2.9 mmol/L (3.6-5.2) L 02/26/17 08:00 Urine Color Yellow (YELLOW) 02/25/17 02:50 Urine Appearance Sl cloudy (CLEAR) 02/25/17 02:50 Urine pH 7.0 (4.7-8.0) 02/25/17 02:50 Ur Specific [place] 1.025 (1.005-1.035) 02/25/17 02:50 Urine Protein >=300 mg/dL (<30 mg/dL) H 02/25/17 02:50 Urine Glucose (UA) Negative mg/dL (NEGATIVE) 02/25/17 02:50 Urine Ketones Trace mg/dL (NEGATIVE) H 02/25/17 02:50 Urine Blood Large (NEGATIVE) H 02/25/17 02:50 Urine Nitrate Negative (NEGATIVE) 02/25/17 02:50 Urine Bilirubin Negative (NEGATIVE) 02/25/17 02:50 Urine Urobilinogen 0.2 E.U./dL (<1 E.U./dL) 02/25/17 02:50 Ur Leukocyte Esterase Negative Meryl/uL (NEGATIVE) 02/25/17 02:50 Urine RBC 1 - 3 /hpf (0-2) 02/25/17 02:50 Urine WBC 1 - 3 /hpf (0-6) 02/25/17 02:50 Ur Epithelial Cells 1 - 3 /hpf (0-5) 02/25/17 02:50 Amorphous Sediment Few 02/25/17 02:50 Urine Bacteria Occ (NEG) 02/25/17 02:50 Ur Random Creatinine 14 mg/dL 02/26/17 03:48 Ur Random Urea Nitrogn 143 mg/dL 02/26/17 03:48 Urine Chloride 22 mmol/L (32-290) L 02/26/17 03:48 Urine HCG, Qual Negative (NEGATIVE) 02/25/17 02:50 Urine Opiates Screen Positive (NEGATIVE) H 02/25/17 02:50 Urine Methadone Screen Negative (NEGATIVE) 02/25/17 02:50 Acetaminophen < 10.0 ug/ml (10.0-20.0) L 02/25/17 02:35 Ur Barbiturates Screen Negative (NEGATIVE) 02/25/17 02:50 Ur Phencyclidine Scrn Negative (NEGATIVE) 02/25/17 02:50 Ur Amphetamines Screen Negative (NEGATIVE) 02/25/17 02:50 U Benzodiazepines Scrn Negative (NEGATIVE) 02/25/17 02:50 U Oth Cocaine Metabols Negative (NEGATIVE) 02/25/17 02:50 U Cannabinoids Screen Negative (NEGATIVE) 02/25/17 02:50 Alcohol, Quantitative < 10 mg/dL (0-10) 02/25/17 02:35 Hepatitis A IgM Ab Negative (NEGATIVE) 02/25/17 06:30 Hep Bs Antigen Negative (NEGATIVE) 02/25/17 06:30 Hep B Core IgM Ab Negative (NEGATIVE) 02/25/17 06:30 Hepatitis C Antibody Reactive (NEGATIVE) H 02/25/17 06:30 HIV 1&2 Ag/Ab, 4th Gen Nonreactive (Nonreactive) 02/25/17 06:30 - Hospital Course Hospital Course: 51F who presented with Nausea/Vomiting/Abdominal Pain and disorientation, brought to the ICU with Fevers, tachycardia, AMS, and presumed ETOH withdrawal. Pt CTH did not demonstrate any acute intracranial pathology. Neurology was consulted, Dr. Ragland. Placed on Precedex for agiation and withdrawl. Found to have sepsis without a clear etiology with an elevated WBC, pending ct abd/ pelvis. Ct abd pelvis incidentally demonstrated a possible multifocal pna. Empiric abx treatment with vancomycin and Zosyn. ID was consulted, Dr. Urbina. All cultures returned negative. Echo was performed showing 44% EF. Pt LFTs increased substantially to AST 3073 ALT 486. Pt was found to be opitate positive on tox screen and Hep C positive. GI was consulted Dr Aburto for eval. Solumedrol and acetylcytesine was started. ABd US demonstrated fatty liver hepatomegaly. Pt to be transferred to [facility] hepatology center. Pt was seen and examined at bedside. Pt was AAOx3, pleasant, not agitated or withdrawing, coughing white sputum. She did not complain of any abdominal pains. She admitted to a couple months hx of coughing. She stated she snorts heroin everyday. Pt denied fever, chills, sob, chest pains, abdominal pains, n/v /d/c. Pt for transfer to [facility] hepatic center. Discharge Exam - Head Exam Head Exam: NORMAL INSPECTION - Eye Exam Eye Exam: EOMI, Normal appearance, PERRL Pupil Exam: NORMAL ACCOMODATION, PERRL - ENT Exam ENT Exam: Mucous Membranes Dry - Respiratory Exam Respiratory Exam: Rhonchi, NORMAL BREATHING PATTERN - Cardiovascular Exam Cardiovascular Exam: RRR, +S1, +S2 - GI/Abdominal Exam GI & Abdominal Exam: Normal Bowel Sounds, Soft. absent: Tenderness - Extremities Exam Extremities exam: normal inspection - Neurological Exam Neurological exam: Alert, CN II-XII Intact, Oriented x3, Reflexes Normal - Psychiatric Exam Psychiatric exam: Normal Affect, Normal Mood - Skin Skin Exam: Dry, Intact, Normal Color, Warm Discharge Plan - Follow Up Plan Condition: SERIOUS Disposition: Trans to Other Acute Care Hosp <Kelby Zamorano - Last Filed: 02/27/17 15:37> Provider - Provider Date of Admission: 02/25/17 06:24 Attending physician: Kelby Zamorano MD Hospital Course - Lab Results Lab Results: Micro Results 02/25/17 08:30 Nose MRSA Culture (Admit) - Final MRSA NOT DETECTED 02/26/17 05:15 Sputum Gram Stain - Final Most Recent Lab Values WBC 8.6 10^3/ul (4.5-11.0) D 02/26/17 04:20 RBC 4.67 10^6/uL (3.5-6.1) 02/26/17 04:20 Hgb 15.3 gm/dL (12.0-16.0) 02/26/17 04:20 Hct 43.2 % (36.0-48.0) 02/26/17 04:20 MCV 92.5 fL (80.0-105.0) 02/26/17 04:20 MCH 32.8 pg (25.0-35.0) 02/26/17 04:20 MCHC 35.4 g/dl (31.0-37.0) 02/26/17 04:20 RDW 14.1 % (11.5-14.5) 02/26/17 04:20 Plt Count 85 10^3/uL (120.0-450.0) L 02/26/17 04:20 MPV 11.8 fl (7.0-11.0) H 02/26/17 04:20 Gran % 89.5 % (50.0-68.0) H 02/26/17 04:20 Lymph % (Auto) 7.1 % (22.0-35.0) L 02/26/17 04:20 [place] % (Auto) 3.1 % (1.0-6.0) 02/26/17 04:20 Eos % (Auto) 0.0 % (1.5-5.0) L 02/26/17 04:20 Baso % (Auto) 0.3 % (0.0-3.0) 02/26/17 04:20 Gran # 7.67 (1.4-6.5) H 02/26/17 04:20 Lymph # 0.6 (1.2-3.4) L 02/26/17 04:20 [place] # 0.3 (0.1-0.6) 02/26/17 04:20 Eos # 0.0 (0.0-0.7) 02/26/17 04:20 Baso # 0.03 K/mm3 (0.0-2.0) 02/26/17 04:20 Neutrophils % (Manual) 89 % (50.0-70.0) H 02/25/17 02:35 Band Neutrophils % 7 % (0-2) H 02/25/17 02:35 Lymphocytes % (Manual) 2 % (22.0-35.0) L 02/25/17 02:35 Monocytes % (Manual) 2 % (1.0-6.0) 02/25/17 02:35 Platelet Evaluation Normal (NORMAL) 02/25/17 02:35 PT 13.7 Seconds (9.9-11.8) H 02/26/17 04:20 INR 1.27 (0.93-1.08) H 02/26/17 04:20 APTT 30.6 Seconds (23.7-30.8) 02/25/17 02:35 pCO2 22 mm/Hg (35-45) L 02/25/17 11:00 pO2 43 mm/Hg (30-55) 02/26/17 08:00 HCO3 20.6 mmol/L (21-28) L 02/25/17 11:00 ABG pH 7.58 (7.35-7.45) H 02/25/17 11:00 ABG Total CO2 21.3 mmol.L (22-28) L 02/25/17 11:00 ABG O2 Saturation 97.0 % (95-98) 02/25/17 11:00 ABG O2 Content 16.1 ML/dl (15-23) 02/25/17 11:00 ABG Base Excess 0.2 mmol/L (-2.0-3.0) 02/25/17 11:00 ABG Hemoglobin 12.1 g/dL (11.7-17.4) 02/25/17 11:00 ABG Carboxyhemoglobin 1.7 % (0.5-1.5) H 02/25/17 11:00 POC ABG HHb (Measured) 2.9 % (0-5) 02/25/17 11:00 ABG Methemoglobin 1.0 % (0.0-3.0) 02/25/17 11:00 ABG O2 Capacity 16.6 mL/dl (16-24) 02/25/17 11:00 VBG pH 7.49 (7.32-7.43) H 02/26/17 08:00 VBG pCO2 35.0 (40-60) L 02/26/17 08:00 VBG HCO3 26.7 mmol/l (21-28) 02/26/17 08:00 VBG Total CO2 27.8 mmol.L (22-28) 02/26/17 08:00 VBG O2 Sat (Calc) 83.4 % (40-65) H 02/26/17 08:00 VBG Base Excess 3.6 mmol/L (0.0-2.0) H 02/26/17 08:00 VBG Potassium 2.9 mmol/L (3.6-5.2) L 02/26/17 08:00 Hgb O2 Saturation 94.3 % (95.0-98.0) L 02/25/17 11:00 Sodium 138.0 mmol/L (132-148) 02/26/17 08:00 Chloride 104.0 mmol/L (98-107) 02/26/17 08:00 Glucose 128 mg/dl (65-105) H 02/26/17 08:00 Lactate 1.5 mmol/L (0.7-2.1) 02/26/17 08:00 FiO2 21.0 % 02/26/17 08:00 Sodium 136 mmol/L (132-148) 02/26/17 04:20 Potassium 2.9 mmol/L (3.6-5.0) L* D 02/26/17 04:20 Chloride 103 mmol/L (95-110) 02/26/17 04:20 Carbon Dioxide 25 mmol/L (21-33) 02/26/17 04:20 Anion Gap 11 (10-20) 02/26/17 04:20 BUN 10 mg/dL (7-21) 02/26/17 04:20 Creatinine 0.5 mg/dL (0.5-1.4) 02/26/17 04:20 Est GFR ( Amer) > 60 02/26/17 04:20 Est GFR (Non-Af Amer) > 60 02/26/17 04:20 Random Glucose 125 mg/dL (70-110) H 02/26/17 04:20 Hemoglobin A1c 5.2 % (4.2-6.5) 02/25/17 02:35 Serum Osmolality 273 mosm/kg (271-296) 02/25/17 10:50 Lactic Acid 1.2 mmol/L (0.7-2.1) 02/25/17 13:50 Calcium 9.5 mg/dL (8.4-10.5) 02/26/17 04:20 Phosphorus 2.1 mg/dL (2.5-4.5) L 02/25/17 06:30 Magnesium 1.8 mg/dL (1.7-2.2) 02/26/17 04:20 Total Bilirubin 2.1 mg/dL (0.2-1.3) H 02/26/17 04:20 AST 3073 U/L (15-39) H 02/26/17 04:20 ALT 486 U/L (7-56) H 02/26/17 04:20 Alkaline Phosphatase 81 U/L (38-133) 02/26/17 04:20 Ammonia 9 umol/L (9-33) 02/25/17 02:35 Lactate Dehydrogenase 2795 U/L (333-699) H 02/26/17 08:00 Total Creatine Kinase 1364 U/L (35-230) H 02/26/17 08:00 CK-MB (CK-2) 8.2 ng/mL (0.0-3.6) H 02/26/17 08:00 CK-MB (CK-2) % 0.6 % (2.5-3.0) L 02/26/17 08:00 Troponin I 0.02 ng/mL 02/25/17 02:35 Total Protein 9.0 g/dL (5.8-8.3) H 02/26/17 04:20 Albumin 4.0 g/dL (3.0-4.8) 02/26/17 04:20 Globulin 5.0 gm/dL 02/26/17 04:20 Albumin/Globulin Ratio 0.8 (1.1-1.8) L 02/26/17 04:20 Triglycerides 94 mg/dL (35-160) 02/25/17 02:35 Cholesterol 227 mg/dL (130-200) H 02/25/17 02:35 LDL Cholesterol Direct 82 mg/dL (0-129) 02/25/17 02:35 HDL Cholesterol 105 mg/dL (29-60) H 02/25/17 02:35 Amylase 256 U/L (35-125) H 02/25/17 02:35 Lipase 342 U/L (23-300) H 02/26/17 10:59 Procalcitonin 0.18 NG/ML (0.19-0.49) L 02/25/17 06:30 Free T4 0.86 ng/dL (0.78-2.19) 02/25/17 02:35 TSH 3rd Generation 0.50 mIU/mL (0.46-4.68) 02/25/17 02:35 Venous Blood Potassium 2.9 mmol/L (3.6-5.2) L 02/26/17 08:00 Urine Color Yellow (YELLOW) 02/25/17 02:50 Urine Appearance Sl cloudy (CLEAR) 02/25/17 02:50 Urine pH 7.0 (4.7-8.0) 02/25/17 02:50 Ur Specific [place] 1.025 (1.005-1.035) 02/25/17 02:50 Urine Protein >=300 mg/dL (<30 mg/dL) H 02/25/17 02:50 Urine Glucose (UA) Negative mg/dL (NEGATIVE) 02/25/17 02:50 Urine Ketones Trace mg/dL (NEGATIVE) H 02/25/17 02:50 Urine Blood Large (NEGATIVE) H 02/25/17 02:50 Urine Nitrate Negative (NEGATIVE) 02/25/17 02:50 Urine Bilirubin Negative (NEGATIVE) 02/25/17 02:50 Urine Urobilinogen 0.2 E.U./dL (<1 E.U./dL) 02/25/17 02:50 Ur Leukocyte Esterase Negative Meryl/uL (NEGATIVE) 02/25/17 02:50 Urine RBC 1 - 3 /hpf (0-2) 02/25/17 02:50 Urine WBC 1 - 3 /hpf (0-6) 02/25/17 02:50 Ur Epithelial Cells 1 - 3 /hpf (0-5) 02/25/17 02:50 Amorphous Sediment Few 02/25/17 02:50 Urine Bacteria Occ (NEG) 02/25/17 02:50 Ur Random Creatinine 14 mg/dL 02/26/17 03:48 Ur Random Urea Nitrogn 143 mg/dL 02/26/17 03:48 Urine Chloride 22 mmol/L (32-290) L 02/26/17 03:48 Urine HCG, Qual Negative (NEGATIVE) 02/25/17 02:50 Urine Opiates Screen Positive (NEGATIVE) H 02/25/17 02:50 Urine Methadone Screen Negative (NEGATIVE) 02/25/17 02:50 Acetaminophen < 10.0 ug/ml (10.0-20.0) L 02/25/17 02:35 Ur Barbiturates Screen Negative (NEGATIVE) 02/25/17 02:50 Ur Phencyclidine Scrn Negative (NEGATIVE) 02/25/17 02:50 Ur Amphetamines Screen Negative (NEGATIVE) 02/25/17 02:50 U Benzodiazepines Scrn Negative (NEGATIVE) 02/25/17 02:50 U Oth Cocaine Metabols Negative (NEGATIVE) 02/25/17 02:50 U Cannabinoids Screen Negative (NEGATIVE) 02/25/17 02:50 Alcohol, Quantitative < 10 mg/dL (0-10) 02/25/17 02:35 Hepatitis A IgM Ab Negative (NEGATIVE) 02/25/17 06:30 Hep Bs Antigen Negative (NEGATIVE) 02/25/17 06:30 Hep B Core IgM Ab Negative (NEGATIVE) 02/25/17 06:30 Hepatitis C Antibody Reactive (NEGATIVE) H 02/25/17 06:30 HIV 1&2 Ag/Ab, 4th Gen Nonreactive (Nonreactive) 02/25/17 06:30 Attending/Attestation - Attestation I have personally seen and examined this patient.: Yes I have fully participated in the care of the patient.: Yes I have reviewed all pertinent clinical information, including history, physical exam and plan: Yes Notes (Text): I have seen and examined the patient at bedside. Agree with the above note with the following additions/ exceptions: This is 51 year old female with history of alcohol abuse, heroine use (snort), known untreated chronic hep c who was admitted for AMS, agitation due to alcohol withdrawal and found to have multifocal pneumonia. She was given zosyn and vancomycin. Echo showed EF of 44% . Today LFT's were noticed to be significantly elevated probably secondary to alcoholic hepatitis. Abdominal ultrasound showed CBD of 7mm and hepatic steatosis. Also has thrombocytopenia which can be due to alcohol induced BM suppression. UDS was positive for opiates. Patient was started on NAC and steroids. Dr Salgado made arrangements to transfer patient to [facility]. Dr Kelby Zamorano.
== END 2017-02-26 16:30 | disposition short-term general hospital (02) | DRG 582 ==
LOC: ED 02:26 → ERH 06:24 → CCU 08:36
PROVIDERS: ADMIT Hospitalist; ATTEND Hospitalist
DX: T40.1X1A Poisoning by heroin, accidental (unintentional), initial encounter (principal); K85.90 Acute pancreatitis without necrosis or infection, unspecified; J68.0 Bronchitis and pneumonitis due to chemicals, gases, fumes and vapors; R65.10 Systemic inflammatory response syndrome (SIRS) of non-infectious origin without acute organ dysfunction; D69.59 Other secondary thrombocytopenia; K70.10 Alcoholic hepatitis without ascites; R16.0 Hepatomegaly, not elsewhere classified; F10.239 Alcohol dependence with withdrawal, unspecified; E87.6 Hypokalemia; F11.10 Opioid abuse, uncomplicated; G40.909 Epilepsy, unspecified, not intractable, without status epilepticus; E83.42 Hypomagnesemia; E83.39 Other disorders of phosphorus metabolism; Y90.0 Blood alcohol level of less than 20 mg/100 ml; Z78.1 Physical restraint status; Z72.0 Tobacco use